=== PATIENT | male | born 1960 | race Caucasian/White ===

== ENCOUNTER 2017-12-22 14:20 | Inpatient (IN) | payer MEDICAID ==
[~2017-12-22] VITALS: Ht 167.6 cm; Wt 88.0 kg
[2017-12-22 14:25] VITALS: BP 129/84
[2017-12-22] MEDS ORDERED: BUPR150T14 PO (15:12)
[2017-12-22] MEDS ORDERED: CYCL10TA9 PO (15:12)
[2017-12-22] MEDS ORDERED: CITA20TA9 PO (15:12)
[2017-12-22] MEDS ORDERED: ATEN50TA PO (15:12)
[2017-12-22] MEDS ORDERED: LISI1TAB8 PO (15:12)
[2017-12-22] MEDS ORDERED: ATOR80TA76 PO (15:12)
[2017-12-22] MEDS ORDERED: FLUT1DIS28 IH (15:12)
[2017-12-22] MEDS ORDERED: MELO15TA39 PO (15:12)
[2017-12-22] MEDS ORDERED: ASPI-808 PO (15:12)
[2017-12-22] MEDS ORDERED: MULT-1029 PO (15:12)
[2017-12-22] MEDS ORDERED: UMEC62.5 IH (15:12)
[2017-12-22] MEDS ORDERED: albuterol INH (15:39)
[2017-12-22] MEDS ORDERED: LORA-405 PO (16:10)
[2017-12-22] MEDS ORDERED: CYCLOBENZAPRINE 10 MG (FLEXERIL) TAB PO PRN (16:15)
[2017-12-22] MEDS ORDERED: LORazepam 1 MG (ATIVAN) TAB PO PRN (16:15)
[2017-12-22 17:55] LABS: BASOPHILS % (AUTO) 0 % (0-10); EOSINOPHILS % (AUTO) 0 % (0-10); HEMATOCRIT 41 % (40-54); LYMPHOCYTES % (AUTO) 7 % (12-44); MEAN CORPUSCULAR HEMOGLOBIN 29 PG (25-34); MEAN CORPUSCULAR HGB CONC 32 G/DL (32-36); MEAN CORPUSCULAR VOLUME 89 FL (80-99); MEAN PLATELET VOLUME 10.6 FL (7.4-10.4); MONOCYTES # (AUTO) 1.1 X 10^3 (0.0-1.0); MONOCYTES % (AUTO) 8 % (0-12); NEUTROPHILS # (AUTO) 12.1 X 10^3 (1.8-7.8); NEUTROPHILS % (AUTO) 85 % (42-75); PLATELET COUNT 328 10^3/uL (130-400); RED BLOOD COUNT 4.56 10^6/uL (4.35-5.85); RED CELL DISTRIBUTION WIDTH 15.4 % (10.0-14.5); WHITE BLOOD COUNT 14.2 10^3/uL (4.3-11.0)
[2017-12-22 18:00] VITALS: BP 115/83
[2017-12-22 18:13] LABS: ALANINE AMINOTRANSFERASE 54 U/L (0-55); ALBUMIN 3.2 GM/DL (3.2-4.5); ALKALINE PHOSPHATASE 74 U/L (40-136); BILIRUBIN,TOTAL 0.6 MG/DL (0.1-1.0); BUN/CREATININE RATIO 27; CALCIUM 9.4 MG/DL (8.5-10.1); CARBON DIOXIDE 23 MMOL/L (21-32); CHLORIDE 103 MMOL/L (98-107); CREATININE SERUM 0.89 MG/DL (0.60-1.30); GFR ESTIMATED > 60; GLUCOSE 110 MG/DL (70-105); POTASSIUM 4.7 MMOL/L (3.6-5.0); SODIUM 138 MMOL/L (135-145); TOTAL PROTEIN 6.8 GM/DL (6.4-8.2)
--- NOTE | 2017-12-22 18:18 | Diagnostic Imaging Report ---
INDICATION: Newly diagnosed with lung mass. Shortness of breath. EXAMINATION: Chest, 12/22/2017. COMPARISON: No priors available for comparison. FINDINGS: The heart is within normal limits in size. The pulmonary vasculature is somewhat prominent, left greater than right. Diffuse increased markings throughout the left mid and lower lung could be diffuse infiltrate with similar findings in the right infrahilar region. A discrete lung mass is not seen but could be obscured by the diffuse airspace opacities. No significant effusions are seen. There is no pneumothorax but there are marked emphysematous changes, especially in the apices, right worse than left. IMPRESSION: 1. Findings of bilateral infiltrates, left worse than right, with a component of asymmetric pulmonary edema not excluded. Followup recommended to assure complete resolution. 2. Findings of COPD. Dictated by: Dictated on workstation # [id number]
[2017-12-22 18:22] LABS: BAND NEUTROPHILS 1 %; BASOPHILS % (MANUAL) 0 %; EOSINOPHILS % (MANUAL) 0 %; LYMPHOCYTES % (MANUAL) 5 %; METAMYELOCYTES % 1 %; MONOCYTES % (MANUAL) 8 %; NEUTROPHILS % (MANUAL) 83 %; PLATELET CLUMPS OCCASIONAL; REACTIVE LYMPHOCYTES 2 %
[2017-12-22 18:23] LABS: ROULEAUX SLIGHT
[2017-12-22] MEDS ORDERED: RT-ALBUTEROL/IPRATROPIUM 3 ML (DUONEB) VIAL ONE (18:35)
[2017-12-22 19:25] LABS: ABG PCO2 33 MMHG (35-45); ABG PH 7.49 (7.37-7.43); ABG PO2 67 MMHG (79-93)
[2017-12-22 19:26] LABS: ABG BASE EXCESS 1.9 MMOL/L (-2.5-2.5); ABG OXYGEN SATURATION 96 % (94-100); ABG TCO2 26.4 MMOL/L (21.0-31.0); ALLENS TEST YES-POS; INSPIRED O2 6L; PATIENT TEMP 96.5; VENTILATOR NO
[2017-12-22 19:30] VITALS: BP 130/102
[2017-12-22] MEDS ORDERED: RT-ADVAIR HFA 45/21 MCG PER PUFF IH SCH (20:00)
[2017-12-22] MEDS ORDERED: buPROPion SR 150 MG (WELLBUTRIN SR) TAB PO SCH (21:00)
[2017-12-22] MEDS ORDERED: ATORVASTATIN 80 MG (LIPITOR) TABLET PO SCH (21:00)
[2017-12-23] MEDS ORDERED: MULTIVIT W/MINERALS TAB (THERAGRAN M) PO SCH (07:00)
[2017-12-23] MEDS ORDERED: ASPIRIN 325 MG (5 GR) TABLET PO SCH (09:00)
[2017-12-23] MEDS ORDERED: ATENOLOL 50 MG (TENORMIN) TAB PO SCH (09:00)
[2017-12-23] MEDS ORDERED: UMECLIDINIUM BROMIDE (INCRUSE ELLIPTA) 7'S IH SCH (09:00)
[2017-12-23] MEDS ORDERED: HYDROCHLOROTHIAZIDE 12.5 MG (HCTZ) CAP PO SCH (09:00)
[2017-12-23] MEDS ORDERED: MELOXICAM 7.5 MG (MOBIC) TABLET PO SCH (09:00)
[2017-12-23] MEDS ORDERED: lisINopril 20 MG (PRINIVIL) TABLET PO SCH (09:00)
[2017-12-23] MEDS ORDERED: NALT50TA PO (09:19)
[2017-12-23] MEDS ORDERED: FLUT1DIS26 IH (09:19)
[2017-12-23] MEDS ORDERED: HYDR-757 PO (09:26)
[2017-12-23] MEDS ORDERED: NF-XOP-HFA IH (09:33)
--- NOTE | 2017-12-23 21:09 | PM&R Post Admission Assessment ---
Post Admission Physician Asses Date seen by provider: Dec 23, 2017 Time seen by provider: 20:45 Admisison Dx: (1) Lung cancer The preadmission screen doesnt agree with the post admission assessment that the patient is a good candidate for inpatient rehabilitation. at this time due to Tachycardia and associated resp failure.The patient is currently on the ICU under the care of [facility] and Hospitalist The patient may have a comprehensive program of inpatient rehabilitation at a later time once medically improved and able to tolerate with a goal of maximizing level of functional independence prior to discharge home with [facility]. The patient may have PT/OT ninety minutes per day, each discipline, five days a week at a later time for gait, strengthening, conditioning, balance, ADLs, any patient/family/caregiver training as necessary. Speech therapy to do cognitive assessment and treat as indicated. ICU nursing to assist with bowel, bladder, skin, wound care, medication administration, pain management. Application Architect to assist with discharge planning, community reentry. SCD's for DVT prophylaxis. He appears to be well motivated to participate in three hours of therapy a day once medically improved. He should hopefully be able to tolerate three hours of therapy a day from a medical standpoint at a later time. He should benefit from the three hours of therapy a day. He has a reasonable discharge plan, reasonable discharge rehabilitation goals and a supportive family. He has various comorbidities that need to be closely monitored with medications and treatments adjusted on a daily basis as needed. These include: Resp failure metabolic acidosis Barriers to discharge for this patient who had been independent prior to this are for him to be modified independent to supervision for ADLs and mobility skills prior to discharge home with [facility], so as to lessen the burden of the caregivers. Risks for this patient include: 1. Fall 2. Fracture 3. DVT 4. Pulmonary embolism 5. Wound infection 6. Skin breakdown 7. Contractures 8. Poorly controlled pain 9. Urinary retention 10. UTI 11. Respiratory infection 12. Aspiration 13. Resp failure 14. Sepsis Estimated Length of Stay: 1 day Prognosis: Rehab prognosis appears fair for goal of discharge home with [facility] modified independent to supervision for ADLs and mobility skills once medically improved. General: Alert, Oriented X3, Cooperative, No Acute Distress HEENT: Atraumatic, EOMI, Mucous Memb Moist/[place] Neck: Supple, No JVD Lungs: Other (decreased breath sounds) Heart: Regular Rate, Other (rapid) Abdomen: Normal Bowel Sounds, Soft, No Tenderness Extremities: No Edema Neuro: Other (generalized weakness) PERLITA LIU MD Dec 23, 2017 21:09
--- NOTE | 2018-01-02 01:54 | DISCHARGE SUMMARY ---
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 The patient was treated at [facility] with O2 and steroids and is to see Dr. Jain, radiation oncology, [facility] for ongoing radiation therapy. He was referred to inpatient rehabilitation unit due to decline in his functional independence. A physician from outside facility discussed case with Dr. Sharma indicating the patient was stable for transfer. He was utilizing O2 by nasal cannula 6 liters per minute and BiPAP p.r.n. He had been independent prior to this. PAST MEDICAL HISTORY: Tobaccoism, COPD as per above. MEDICAL COURSE: The patient became more tachypneic and tachycardic. Dr. Sharma discussed case with Dr. Batista, hospitalist on-call. She transferred the patient to the ICU for further management. It is my understanding the patient was discharged from this facility on 12/30/2017, did not return to rehabilitation unit. No therapies were able to be provided due to the gravity of his stay on rehab unit, which was less than 3 hours. His blood pressure was 115/83 on 12/22. He was afebrile. Pulse was 117, respirations 21, O2 sat was 91% on 5 liters of O2 by nasal cannula. White count was 14.2 on 12/22, H and H 13/, platelet count 328,000. Chemistry revealed lactic acid of 1.50, blood glucose 110, AST elevated at 40, BUN 24. Troponin is less than 0.3. BNP is less than 10. Blood gas showed pH 7.49, CO2 33, pO2 67. DISCHARGE INSTRUCTIONS: He had a followup with Dr. Batista and Dr. Garza in ICU. DISCHARGE MEDICATIONS: Supplemental O2 and BiPAP as per above, ASA 325 mg p.o. daily, atenolol 50 mg p.o. daily, Lipitor 80 mg p.o. at bedtime, bupropion 150 mg p.o. b.i.d., Celexa 20 mg p.o. daily, fluticasone/salmeterol 1 inhalation b.i.d., hydrocodone/APAP 1 tablet p.o. daily p.r.n. pain, lisinopril/hydrochlorothiazide 1 tablet p.o. daily, Mobic 15 mg p.o. daily, multivitamins with iron 1 tablet p.o. daily, naltrexone 50 mg p.o. daily. DISCHARGE DIAGNOSES: 1. Acute respiratory failure. 2. Left upper lobe lung cancer. 3. Tachycardia and tachypnea. 4. Metabolic acidosis. 5. Chronic obstructive pulmonary disease. 6. Pulmonary congestion. 7. Tobaccoism. CONDITION AT DISCHARGE: Unimproved, but stable for transfer to ICU. PROGNOSIS: Rehab prognosis appears somewhat guarded at this time. Job ID: [id number] DocumentID: [id number] Dictated Date: 01/01/2018 10:41:17 Airplane Engineer Date: 01/01/2018 23:39:20 Dictated By: PERLITA SHARMA MD
--- NOTE | 2018-01-07 08:46 | HISTORY AND PHYSICAL ---
ADMISSION HISTORY AND PHYSICAL CHIEF COMPLAINT: Shortness of breath. 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 The patient was treated at [facility] with oxygen and steroids and is to see Dr. Jain, radiation oncology at [facility] for ongoing radiation therapy. He was referred to inpatient rehabilitation unit due to decline in his functional independence. Currently, he requires assistance for his ADLs and mobility skills. He has tachypnea and tachycardia at rest. He is utilizing O2 by nasal cannula 6 liters per minute and BiPAP p.r.n. He had been independent prior to all this. PAST MEDICAL HISTORY: Tobaccoism, COPD. PAST SURGICAL HISTORY: Noncontributory. ALLERGIES: CODEINE. FAMILY HISTORY: Lung cancer in mother. Uterine cancer in sister. Brain cancer in mother. Congenital heart disease in father. SOCIAL HISTORY: Essentially as per above. REVIEW OF SYSTEMS: Significant for rapid heartbeat, dyspnea, weakness. MEDICATIONS: Supplemental O2, BiPAP, ASA 325 mg p.o. daily, atenolol 50 mg p.o. daily, Lipitor 80 mg p.o. at bedtime, bupropion 150 mg p.o. b.i.d., Celexa 20 mg p.o. daily, fluticasone/salmeterol 1 inhalation b.i.d., hydrocodone APAP 1 tablet p.o. daily p.r.n. pain, lisinopril/hydrochlorothiazide one tablet p.o. daily, Mobic 15 mg p.o. daily, multivitamins with iron 1 tablet p.o. daily, naltrexone 50 mg p.o. daily. PHYSICAL EXAMINATION: GENERAL: Significant for a male appearing his stated age, lying in bed, complaining of mild shortness of breath. VITAL SIGNS: He is afebrile, pulse is 127, blood pressure 129/84, respirations 24, and O2 sat 93% on 6 liters of O2 by nasal cannula. HEENT: The patient reports some decreased vision in the left eye. Otherwise, vision, speech, hearing are grossly intact. No oral lesion is noted. NECK: Supple without mass. HEART: Rapid rhythm. CHEST: Decreased breath sounds. ABDOMEN: Soft, nontender, bowel sounds present. EXTREMITIES: No lower leg edema, no calf tenderness. MUSCULOSKELETAL: The patient has generalized weakness. NEUROLOGIC: Sensation is grossly intact to touch. Cognition appears intact. LABORATORY DATA: White count 20, H and H 12.1/37, blood glucose 108. IMPRESSION: 1. General debilitation secondary to acute respiratory failure secondary to underlying lung cancer. 2. Pulmonary congestion on chest x-ray, rule out pneumonia. The patient placed on antibiotic as per sepsis protocol. 3. Tobaccoism, currently abstaining. 4. Metabolic acidosis, provided with IV fluids. PLAN: Discussed the case with Dr. Batista. She has transferred patient to the ICU. Discussed case with hospitalist at [facility] who indicated the patient was fairly stable for transfer on Saturday the first. Dehydration, IV fluids provided. Panculture as per sepsis protocol. We will discuss further with the staff that the patient may not be able to tolerate rehab once stabilized by medical team. We will follow up with them. ESTIMATED LENGTH OF STAY: The patient was on unit for less than 12 hours. CODE STATUS: Full code. DIET: As tolerated. Job ID: [id number] DocumentID: [id number] Dictated Date: 12/23/2017 21:02:49 Irrigation Supervisor Date: 12/23/2017 22:43:09 Dictated By: PERLITA LIU MD <Dictated by PERLITA LIU MD> <Electronically signed by PERLITA LIU MD> 12/24/17 [id number]
== END 2017-12-25 07:00 | disposition short-term general hospital (02) | DRG 189 ==
PROVIDERS: ADMIT Physical Medicine & Rehabilitation; ATTEND Physical Medicine & Rehabilitation
DX: J96.00 Acute respiratory failure, unspecified whether with hypoxia or hypercapnia (principal); C34.12 Malignant neoplasm of upper lobe, left bronchus or lung; E87.2 Acidosis; R00.0 Tachycardia, unspecified; J44.9 Chronic obstructive pulmonary disease, unspecified; R09.89 Other specified symptoms and signs involving the circulatory and respiratory systems; F17.210 Nicotine dependence, cigarettes, uncomplicated
CPT/HCPCS: 36415; 36600; 71045; 80053; 82805; 83605; 83880; 84484; 85007; 85027; 93005; 94640; 94660; 94760

== ENCOUNTER 2017-12-22 19:08 | Inpatient (IN) | payer MEDICAID ==
[~2017-12-22] VITALS: Ht 167.6 cm; Wt 92.6 kg
[2017-12-22] VITALS (10 sets, daily range): BP systolic 91–130; BP diastolic 69–102
[~2017-12-22 19:08] MED LIST: ASPI-808 PO; ATEN50TA PO; ATOR80TA76 PO; BUPR150T14 PO; CITA20TA9 PO; CYCL10TA9 PO; FLUT1DIS28 IH; LISI1TAB8 PO; LORA-405 PO; MELO15TA39 PO; MULT-1029 PO; UMEC62.5 IH; albuterol INH
[2017-12-22] MEDS ORDERED: PIPERACILLIN/TAZOBACTAM 3.375 GM in NS (IVPB) 100 ML IV ONE (19:17)
[2017-12-22] MEDS ORDERED: PHARMACY TO DOSE IV SCH (19:30)
[2017-12-22] MEDS ORDERED: LORazepam INJ 2 MG/ML (ATIVAN) VIAL IVP PRN (19:30)
[2017-12-22] MEDS ORDERED: IBUPROFEN TABLET 200 MG TAB PO PRN (19:30)
[2017-12-22] MEDS ORDERED: ACETAMINOPHEN 500 MG TAB (TYLENOL) PO PRN (19:30)
[2017-12-22] MEDS ORDERED: fentaNYL INJECTION 100 MCG/2 ML AMP IVP PRN (19:30)
[2017-12-22] MEDS ORDERED: HYDROcodone/APAP 5 MG/325 MG (LORTAB) TAB PO PRN (19:30)
[2017-12-22] MEDS ORDERED: ONDANSETRON 4 MG/2 ML (SDV) Z0FRAN IVP PRN (19:30)
[2017-12-22] MEDS ORDERED: POLYETHYLENE GLYCOL 17 GM (MIRALAX) PACK PO PRN (19:30)
[2017-12-22] MEDS ORDERED: VANCOMYCIN 1,750 MG/NS 500 ML IVPB IV ONE ×2 (20:15)
[2017-12-22] MEDS: ENOXAPARIN 40 MG/0.4 ML (LOVENOX) SYR SC SCH (21:09)
[2017-12-22] MEDS: DOCUSATE SODIUM 100 MG (COLACE) CAP PO SCH (21:09)
[2017-12-22] MEDS ORDERED: VANCOMYCIN 750 MG/VIAL IV ONE (21:20)
[2017-12-22] MEDS ORDERED: NS IV 500 ML 500 ML ONE (21:20)
[2017-12-22] MEDS ORDERED: VANCOMYCIN 1000 MG/VIAL ONE (21:20)
[2017-12-22] MEDS ORDERED: RT-ALBUTEROL/IPRATROPIUM 3 ML (DUONEB) VIAL INH PRN (22:45)
[2017-12-22] MEDS: methylPREDNISolone 40 MG/ML (Solu-MEDROL) VIAL IV SCH (23:25)
[2017-12-23] VITALS (29 sets, daily range): BP systolic 101–162; BP diastolic 70–108
[2017-12-23] MEDS: PIPERACILLIN/TAZO 3.375 GM/D5W 100 ML IV SCH ×6 (01:36→18:15)
[2017-12-23] MEDS: RT-ALBUTEROL/IPRATROPIUM 3 ML (DUONEB) VIAL INH SCH ×6 (01:52→22:08)
[2017-12-23 04:25] LABS: BASOPHILS % (AUTO) 0 % (0-10); EOSINOPHILS # (AUTO) 0.1 10^3/uL (0.0-0.3); EOSINOPHILS % (AUTO) 0 % (0-10); HEMATOCRIT 37 % (40-54); HEMOGLOBIN 12.1 G/DL (13.3-17.7); LYMPHOCYTES # (AUTO) 1.6 X 10^3 (1.0-4.0); LYMPHOCYTES % (AUTO) 8 % (12-44); MEAN CORPUSCULAR HEMOGLOBIN 30 PG (25-34); MEAN CORPUSCULAR HGB CONC 33 G/DL (32-36); MEAN CORPUSCULAR VOLUME 90 FL (80-99); MONOCYTES # (AUTO) 1.5 X 10^3 (0.0-1.0); MONOCYTES % (AUTO) 8 % (0-12); NEUTROPHILS # (AUTO) 16.8 X 10^3 (1.8-7.8); NEUTROPHILS % (AUTO) 84 % (42-75); PLATELET COUNT 252 10^3/uL (130-400); RED CELL DISTRIBUTION WIDTH 15.3 % (10.0-14.5)
[2017-12-23 04:41] LABS: MAGNESIUM 2.1 MG/DL (1.8-2.4)
[2017-12-23 04:43] LABS: ALANINE AMINOTRANSFERASE 47 U/L (0-55); ALBUMIN 2.7 GM/DL (3.2-4.5); ALKALINE PHOSPHATASE 65 U/L (40-136); BILIRUBIN,TOTAL 0.5 MG/DL (0.1-1.0); BUN/CREATININE RATIO 26; CALCIUM 8.9 MG/DL (8.5-10.1); CARBON DIOXIDE 19 MMOL/L (21-32); CHLORIDE 107 MMOL/L (98-107); CREATININE SERUM 0.93 MG/DL (0.60-1.30); GFR ESTIMATED > 60; GLUCOSE 108 MG/DL (70-105); POTASSIUM 4.4 MMOL/L (3.6-5.0); SODIUM 139 MMOL/L (135-145); TOTAL PROTEIN 5.8 GM/DL (6.4-8.2)
[2017-12-23] MEDS: POTASSIUM CL 10MEQ/50ML IVPB 50 ML IV SCH (05:07)
[2017-12-23] MEDS: KCL 20 MEQ TAB (K-DUR) PO SCH (05:07)
[2017-12-23] MEDS: MAGNESIUM 1 GM/100 ML IVPB 100 ML IV SCH (05:07)
[2017-12-23] MEDS: methylPREDNISolone 40 MG/ML (Solu-MEDROL) VIAL IV SCH ×3 (05:46→17:11)
[2017-12-23] MEDS ORDERED: NS IV 1000 ML 2,653.53 ML IV PRN (08:15)
--- NOTE | 2017-12-23 08:16 | Pulmonary Consultation ---
History of Present Illness History of Present Illness Date of Consultation 12/23/17 08:11 Time Seen by Provider: 08:11 Date of Admission History of Present Illness 57yo who was recently at [facility] transferred to our in patient rehab facility. While on rehab floor patient developed progressive respiratory distress and had to be transferred to ICU. Pt is currently on BiPAP and it is difficult to obtain any information from patient. No family at bedside. CXR shows pulmonary congestion. IVF are hep locked Allergies and Home Medications Allergies Coded Allergies: codeine (Verified Allergy, Unknown, 12/22/17) Home Medications Apixaban 5 Mg Tablet, 5 MG PO BID TAKE 2 TABLETS BID X 7 DAYS, THEN 1 TABLET BID Prescribed by: RELL BONILLA on 12/30/17755 Bupropion HCl 150 Mg Tablet.er, 150 MG PO BID Prescribed by: REYMUNDO SANTANA on 12/22/171511 Citalopram Hydrobromide 20 Mg Tablet, 20 MG PO DAILY Prescribed by: REYMUNDO SANTANA on 12/22/17 151 Fluticasone/Salmeterol 1 Each Blst.w.dev, 1 EACH IH BID, (Reported) Hydrocodone/Acetaminophen 1 Each Tablet, 1 EACH PO DAILY PRN for PAIN-MILD TO MODERATE, (Reported) Levalbuterol Tartrate 15 Gm Hfa.aer.ad, 15 GM IH DAILY, (Reported) Meloxicam 15 Mg Tablet, 15 MG PO DAILY Prescribed by: REYMUNDO SANTANA on 12/22/171511 Morphine Sulfate 100 Mg/5 Ml Solution, 5 MG PO Q2H PRN for PAIN Prescribed by: RELL BONILLA on 12/30/17755 Multivit-Min/FA/Lycopene/Lut 1 Each Tablet, 1 EACH PO DAILY Prescribed by: REYMUNDO SANTANA on 12/22/171511 Umeclidinium [place] 62.5 Mcg Blst.w.dev, 62.5 MCG IH DAILY Prescribed by: REYMUNDO SANTANA on 12/22/171511 Past Fslyfos-Iobjny-Xzrgiw Hx Patient Social History Alcohol Use: Occasionally Uses Alcohol Beverage of Choice: Beer Recreational Drug Use: No Smoking Status: Former Smoker Former Smoker, Quit: Mar 25, 2017 Recent Foreign Travel: No Contact w/Someone Who Travel: No Recent Infectious Disease Expo: No Recent Hopitalizations: Yes Seasonal Allergies Seasonal Allergies: No Past Medical History Surgeries: Yes Respiratory: Yes Pneumonia, COPD Currently Using CPAP: No Currently Using BIPAP: No Neurological: Yes (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) Gastrointestinal: Yes Abdominal Hernia, Gastroesophageal Reflux, Gall Bladder Disease Musculoskeletal: Yes Arthritis Endocrine: No HEENT: Yes (poor vision in the left eye for 10 yrs possible CVA of the eye) Loss of Vision: Left Hearing Impairment: Denies Cancer: Yes Lung, Kidney Did You Recieve Any Treatments: Yes What Type of Treatment Did You: Radiation Started Radiation on 12/19/17 Psychosocial: Yes Anxiety, Depression Integumentary: No Blood Disorders: No Adverse Reaction/Blood Tranf: No Family Medical History Congenital heart disease 19 FATHER FH: brain cancer 19 MOTHER FH: lung cancer 19 MOTHER FH: uterine cancer G8 SISTER Review of Systems Time Seen by Provider: 13:34 Constitutional: Weakness Respiratory: Cough, Dry, Shortness of breath, SOB with excertion Gastrointestinal: No: Nausea, Vomiting, Abdominal Pain, Diarrhea, Constipation , Melena, Hematochezia, Other Neurological: Weakness Exam Exam Vital Signs Date Time Temp Pulse Resp B/P (MAP) Pulse Ox O2 Delivery O2 Flow Rate FiO2 12/23/17 08:07 101 16 120/96 (104) 98 Vapotherm 35.00 40.00 12/23/17 06:52 86 16 100 35.00 12/23/17 06:00 82 13 108/74 (85) 100 NIV Bilevel 35.00 12/23/17 05:00 84 15 112/74 (87) 100 NIV Bilevel 35.00 12/23/17 04:00 90 14 120/80 (93) 100 NIV Bilevel 35.00 12/23/17 04:00 100 NIV Bilevel 40 12/23/17 03:59 90 15 99 40.00 12/23/17 03:58 60 17 100 NIV Bilevel 35.00 12/23/17 03:00 89 15 115/78 (90) 100 NIV Bilevel 40.00 12/23/17 02:00 90 15 119/80 (93) 100 NIV Bilevel 40.00 12/23/17 01:52 90 16 100 40.00 12/23/17 01:00 93 12/23/17 01:00 93 15 114/71 (85) 100 NIV Bilevel 40.00 12/23/17 00:00 98 NIV Bilevel 40 12/23/17 00:00 97 15 101/74 (83) 100 NIV Bilevel 40.00 12/22/17 23:41 101 25 100 50.00 12/22/17 23:41 99 15 100 NIV Bilevel 40.00 12/22/17 23:00 108 16 121/81 (94) 100 NIV Bilevel 50.00 12/22/17 22:00 112 14 100/69 (79) 100 NIV Bilevel 50.00 12/22/17 21:46 122 24 95 50.00 12/22/17 21:46 122 95 50 12/22/17 21:37 117 20 120/80 (93) 100 NIV Bilevel 50.00 12/22/17 21:30 118 21 124/81 (95) 100 Vapotherm 75.00 25.00 12/22/17 21:16 97 Vapotherm 40.00 75 12/22/17 21:15 117 16 120/80 (93) 100 NIV Bilevel 50.00 12/22/17 21:00 100 NIV Bilevel 50.00 12/22/17 20:37 124 12/22/17 20:00 97.0 12/22/17 20:00 123 22 124/81 (95) 100 NIV Bilevel 50.00 12/22/17 19:45 121 25 91/79 (83) 100 NIV Bilevel 50.00 12/22/17 19:30 118 22 93/74 (80) 100 NIV Bilevel 50.00 12/22/17 19:22 124 12 130/102 (111) 90 NIV Bilevel 50.00 I & O 12/23/17 07:00 Intake Total 1040 ml Output Total 600 ml Balance 440 ml General Appearance: Moderate Distress Neck: Normal Inspection, Non Tender, Supple Respiratory: Decreased Breath Sounds, Respiratory Distress Cardiovascular: No Edema, No Gallop, Tachycardia Capillary Refill: Less Than 3 Seconds Peripheral Pulses: 2+ Carotid (R), 2+ Carotid (L), 2+ Radial Pulses (R), 2+ Radial Pulses (L) Gastrointestinal: normal bowel sounds, non tender, soft Extremity: Normal Capillary Refill Neurologic/Psychiatric: Alert, Oriented x3 Skin: Normal Color, Warm/Dry Lymphatic: No Adenopathy Results Lab Laboratory Tests 12/23/17 03:15 Assessment/Plan Assessment/Plan Acute respiratoy failure -BIPAP PRN -Will trial patient off BiPAP this AM Pneumonia with severe sepsis -Lactic acid is normal. will repeat -will start severe sepsis protocol 30cc/kg of IVF -Start IVF -garza culture -continue Vanco and zosyn Dehydration -IVF Anemia -monitor Metabolic acidosis -IVF -repeat LA Debility/deconditioning 255 MARLO FORRESTER DO Dec 23, 2017 08:16
[2017-12-23] MEDS: DOCUSATE SODIUM 100 MG (COLACE) CAP PO SCH ×2 (08:28→20:06)
[2017-12-23] MEDS: VANCOMYCIN 1500 MG/NS 500 ML IVPB IV SCH ×4 (08:42→20:06)
[2017-12-23] MEDS: NS IV 1000 ML 1,000 ML IV SCH ×4 (08:42→20:48)
--- NOTE | 2017-12-23 08:43 | Diagnostic Imaging Report ---
INDICATION: Respiratory distress. Portable chest 3:39 AM There are emphysematous changes in the lungs. There is a large consolidating infiltrate in the perihilar region of left lung that is improved slightly from the previous day. IMPRESSION: Left perihilar pneumonia has shown some improvement since the previous days exam. Dictated by: Dictated on workstation # [id number]
[2017-12-23] MEDS ORDERED: NALT50TA PO (09:19)
[2017-12-23] MEDS ORDERED: FLUT1DIS26 IH (09:19)
--- NOTE | 2017-12-23 09:20 | History & Physical-Hospitalist ---
History of Present Illness HPI/Chief Complaint CC: Respiratory distress HPI: This is a 57-year-old white male who was just discharged from hospital in [facility] and was set to be admitted to inpatient rehabilitation of which he was upon arrival nursing staff contacted me regarding respiratory distress. Apparently he is just had a recent diagnosis of lung cancer of which Dr. Tirado has been involved and will be undergoing radiation treatment of which he's had two treatments already. He was diagnosed with 2 bouts of pneumonia in the past one month requiring rehospitalization and had just completed Levaquin 10 days prior to transferring to [facility]. 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 He is a previous smoker. He reports that his had leukemia 7 years ago and 2-1/2 years ago and he has been in penitentiary since that time. Unclear the type of lung cancer he has been Dr. Jain will be consulted for radiation treatment here [facility]. He was not discharged home on oxygen and was not discharged on BiPAP since he was being placed in a hospital facility in inpatient rehabilitation when he was transferred to [facility]. Source: patient, RN/MD Exam Limitations: no limitations Date Seen 12/23/17 Time Seen by Provider: 09:00 Attending Physician Mireille Frias DO PCP Unknown Referring Physician Date of Admission Dec 22, 2017 at 19:08 Home Medications & Allergies Home Medications Reviewed patient Home Medication Reconciliation performed by pharmacy medication reconciliations holter technician and/or nursing. Patients Allergies have been reviewed. 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) Alcohol Use: Occasionally Uses Alcohol Beverage of Choice: Beer Recreational Drug Use: No Smoking Status: Former Smoker Former Smoker, Quit: Mar 25, 2017 Physical Abuse Screen: No Sexual Abuse: No Recent Foreign Travel: No Contact w/other who traveled: No Recent Hopitalizations: Yes Recent Infectious Disease Expo: No Seasonal Allergies Seasonal Allergies: No Past Medical History Currently Using CPAP: No Currently Using BIPAP: No Cardiac: High Cholesterol, Hypertension Gastrointestinal: Abdominal Hernia, Gastroesophageal Reflux, Gall Bladder Disease Musculoskeletal: Arthritis Loss of Vision: Left Hearing Impairment: Denies Cancer: Lung, Kidney Did You Recieve Any Treatments: Yes What Type of Treatment Did You: Radiation Cancer: Started Radiation on Thurdsay 12/19/17 Psychosocial: Anxiety, Depression History of Blood Disorders: No Adverse Reaction to Blood Link: No Family History Congenital heart disease 19 FATHER FH: brain cancer 19 MOTHER FH: lung cancer 19 MOTHER FH: uterine cancer G8 SISTER Hypertension Review of Systems Constitutional: no symptoms reported, fever, malaise, weakness EENTM: no symptoms reported Respiratory: cough, dyspnea on exertion, orthopnea, short of breath, wheezing Cardiovascular: no symptoms reported Gastrointestinal: no symptoms reported Genitourinary: no symptoms reported Musculoskeletal: no symptoms reported Skin: no symptoms reported Psychiatric/Neurological: No Symptoms Reported All Other Systems Reviewed Negative Unless Noted: Yes Physical Exam Physical Exam Vital Signs Vital Signs - First Documented 12/22/17 12/22/17 12/22/17 19:22 20:00 21:16 Temp 97.0 Pulse 124 Resp 12 B/P (MAP) 130/102 (111) Pulse Ox 90 O2 Delivery NIV Bilevel O2 Flow Rate 50.00 FiO2 75 Capillary Refill : Less Than 3 Seconds General Appearance: WD/WN, Chronically ill, Mild Distress (due to tachypnea) Eyes: Bilateral Eye Normal Inspection, Bilateral Eye PERRL HEENT: PERRL/EOMI, Normal ENT Inspection, Pharynx Normal Neck: Full Range of Motion, Normal Inspection, Non Tender, Supple, Carotid Bruit Respiratory: Chest Non Tender, Crackles, Decreased Breath Sounds, Wheezing Cardiovascular: No Edema, No Gallop, No JVD, No Murmur, Normal Peripheral Pulses, Tachycardia Gastrointestinal: Normal Bowel Sounds, No Organomegaly, No Pulsatile Mass, Non Tender, Soft Back: Normal Inspection, No CVA Tenderness, No Vertebral Tenderness Extremity: Normal Capillary Refill, Normal Inspection, Normal Range of Motion, Non Tender, No Calf Tenderness, No Pedal Edema Neurologic/Psychiatric: Alert, Oriented x3, No Motor/Sensory Deficits, Normal Mood/Affect Skin: Normal Color, Warm/Dry Lymphatic: No Adenopathy Results Results/Procedures Labs Laboratory Tests 12/23/17 03:15 Patient resulted labs reviewed. Assessment/Plan Admission Diagnosis Pneumonia Lung cancer COPD Sepsis Admission Status: Inpatient Order (span 2 midnights) Reason for Inpatient Admission: Resistant penumonia with lung cancer will require IV abx and biPAP Assessment and Plan Plan: Appreciate Dr. Garza consultation IV fluid for elevated lactic acid with sepsis Empiric antibiotics of Zosyn and vancomycin Dr. Jain for radiation treatment of lung cancer Monitor labs closely BiPAP Diagnosis/Problems Diagnosis/Problems (1) Acute respiratory failure with hypoxia Status: Acute Assessment & Plan: BiPAP use with oxygen and nebulizer treatments (2) Sepsis Status: Acute Assessment & Plan: IV fluid per protocol Qualifiers: Sepsis type: sepsis due to unspecified organism Qualified Codes: A41.9 - Sepsis, unspecified organism (3) Pneumonia Status: Acute Assessment & Plan: Maintain vancomycin and Zosyn empiric antibiotics coverage Qualifiers: Pneumonia type: due to unspecified organism Laterality: left Lung location: lower lobe of lung Qualified Codes: J18.1 - Lobar pneumonia, unspecified organism (4) Lung cancer Status: Chronic Assessment & Plan: Obtain records from [facility] regarding specifics on lung cancer Qualifiers: Laterality: left Lung location: unspecified part of lung Qualified Codes : C34.92 - Malignant neoplasm of unspecified part of left bronchus or lung (5) COPD (chronic obstructive pulmonary disease) Status: Acute Qualifiers: COPD type: unspecified COPD Qualified Codes: J44.9 - Chronic obstructive pulmonary disease, unspecified (6) Former smoker Status: Chronic Clinical Quality Measures DVT/VTE Risk/Contraindication: Risk Factor Score Per Nursin RFS Level Per Nursing on Admit: 4+=Very High MIREILLE FRIAS DO Dec 23, 2017 09:20
[2017-12-23] MEDS ORDERED: HYDR-757 PO (09:26)
[2017-12-23] MEDS ORDERED: NF-XOP-HFA IH (09:33)
[2017-12-23 09:35] LABS: ABG BASE EXCESS 0.8 MMOL/L (-2.5-2.5); ABG OXYGEN SATURATION 91 % (94-100); ABG PCO2 36 MMHG (35-45); ABG PH 7.45 (7.37-7.43); ABG PO2 55 MMHG (79-93); ABG TCO2 25.8 MMOL/L (21.0-31.0); ALLENS TEST P
[2017-12-23 09:36] LABS: INSPIRED O2 Y; PATIENT TEMP 96.4; VENTILATOR NO
--- NOTE | 2017-12-23 11:31 | Progress Note (SOAP) ---
Subjective Date Seen by Provider: Dec 23, 2017 Time Seen by Provider: 10:00 Subjective/Events-last exam Note only - patient was not seen by rad onc provider Focused Exam Lactate Level 12/23/17 07:35: Lactic Acid Level 2.46*H 12/23/17 09:45: Lactic Acid Level 2.51*H Lactic Acid Level Laboratory Tests Test 12/23/17 07:35 12/23/17 09:45 Lactic Acid Level 2.46 MMOL/L (0.50-2.00) *H 2.51 MMOL/L (0.50-2.00) *H Objective Exam Last Set of Vital Signs Vital Signs Date Time Temp Pulse Resp B/P (MAP) Pulse Ox O2 Delivery O2 Flow Rate FiO2 12/23/17 10:53 96 Vapotherm 35.00 12/23/17 09:00 107 17 120/76 (91) 12/23/17 08:15 35 12/23/17 08:07 96.0 Capillary Refill : Less Than 3 Seconds I&O Intake and Output 12/23/17 00:00 Intake Total 340 ml Output Total 400 ml Balance -60 ml Intake Oral 240 ml IV Total 100 ml Output Urine Total 400 ml Daily Weight Change No Results Lab Laboratory Tests 12/23/17 03:15: White Blood Count 20.0H, Red Blood Count 4.10L, Hemoglobin 12.1L, Hematocrit 37L , Mean Corpuscular Volume 90, Mean Corpuscular Hemoglobin 30, Mean Corpuscular Hemoglobin Concent 33, Red Cell Distribution Width 15.3H, Platelet Count 252, Mean Platelet Volume 11.0H, Neutrophils (%) (Auto) 84H, Lymphocytes (%) (Auto) 8L, Monocytes (%) (Auto) 8, Eosinophils (%) (Auto) 0, Basophils (%) (Auto) 0, Neutrophils # (Auto) 16.8H, Lymphocytes # (Auto) 1.6, Monocytes # (Auto) 1.5H, Eosinophils # (Auto) 0.1, Basophils # (Auto) 0.0, Sodium Level 139, Potassium Level 4.4, Chloride Level 107, Carbon Dioxide Level 19L, Anion Gap 13, Blood Urea Nitrogen 24H, Creatinine 0.93, Estimat Glomerular Filtration Rate > 60, BUN /Creatinine Ratio 26, Glucose Level 108H, Calcium Level 8.9, Phosphorus Level 3.0, Magnesium Level 2.1, Total Bilirubin 0.5, Aspartate Amino Transf (AST/SGOT ) 40H, Alanine Aminotransferase (ALT/SGPT) 47, Alkaline Phosphatase 65, Total Protein 5.8L, Albumin 2.7L 12/23/17 07:35: Lactic Acid Level 2.46*H 12/23/17 07:50: B-Type Natriuretic Peptide 18.3 12/23/17 09:27: Blood Gas Puncture Site R BRACHIAL, Blood Gas Patient Temperature 96.4, Arterial Blood pH 7.45H, Arterial Blood Partial Pressure CO2 36, Arterial Blood Partial Pressure O2 55L, Arterial Blood HCO3 25, Arterial Blood Total CO2 25.8, Arterial Blood Oxygen Saturation 91L, Arterial Blood Base Excess 0.8, Per Test P, Blood Gas Ventilator Setting NO, Blood Gas Inspired Oxygen Y 12/23/17 09:45: Lactic Acid Level 2.51*H Assessment/Plan Assessment/Plan Assess & Plan/Chief Complaint 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 Jain this a.m. with regards rad onc consult. I followed up with Shae GALDAMEZ. Patient now on vapotherm pressurized nasal cannula; she reports he is short of breath at rest in a sitting position; when questioned about lying him flat for a ct sim/treatment she states he would not be able to tolerate it at this time. Dr. Jain does not want to bring patient down to rad onc dept until able to lie flat for 10-15 minutes for repeat sim followed by same day treatment. Shae GALDAMEZ notified of Dr. Jain' decision. Final Diagnosis Stage IV NSC lung cancer, ALKA respiratory compromise due to external compression of left mainstem bronchus Clinical Quality Measures DVT/VTE Risk/Contraindication: Risk Factor Score Per Nursin RFS Level Per Nursing on Admit: 4+=Very High JAZZMINE ALCOCER RN, PRECIPITATOR SUPERVISOR Dec 23, 2017 11:31
[2017-12-23] MEDS ORDERED: morphine INJ 4 MG/ML 1 ML (VIAL/SYRINGE) ONE (14:31)
[2017-12-23] MEDS ORDERED: HALOPERIDOL 5 MG/ML (HALDOL) AMP IM PRN (14:45)
[2017-12-23] MEDS ORDERED: morphine INJ 4 MG/ML 1 ML (VIAL/SYRINGE) IVP PRN (14:45)
[2017-12-23] MEDS: ENOXAPARIN 40 MG/0.4 ML (LOVENOX) SYR SC SCH (20:06)
[2017-12-23] MEDS: morphine INJ 4 MG/ML 1 ML (VIAL/SYRINGE) IVP PRN (22:05)
[2017-12-24] VITALS (37 sets, daily range): BP systolic 98–182; BP diastolic 54–109
[2017-12-24] MEDS: methylPREDNISolone 40 MG/ML (Solu-MEDROL) VIAL IV SCH ×4 (00:05→17:43)
[2017-12-24] MEDS: PIPERACILLIN/TAZO 3.375 GM/D5W 100 ML IV SCH ×6 (02:05→17:43)
[2017-12-24] MEDS: RT-ALBUTEROL/IPRATROPIUM 3 ML (DUONEB) VIAL INH SCH ×6 (02:28→21:14)
[2017-12-24 03:30] LABS: BASOPHILS % (AUTO) 0 % (0-10); EOSINOPHILS % (AUTO) 0 % (0-10); HEMATOCRIT 37 % (40-54); HEMOGLOBIN 11.8 G/DL (13.3-17.7); LYMPHOCYTES # (AUTO) 1.5 X 10^3 (1.0-4.0); LYMPHOCYTES % (AUTO) 6 % (12-44); MEAN CORPUSCULAR HEMOGLOBIN 29 PG (25-34); MEAN CORPUSCULAR HGB CONC 32 G/DL (32-36); MEAN CORPUSCULAR VOLUME 92 FL (80-99); MEAN PLATELET VOLUME 10.4 FL (7.4-10.4); MONOCYTES # (AUTO) 1.5 X 10^3 (0.0-1.0); MONOCYTES % (AUTO) 6 % (0-12); NEUTROPHILS # (AUTO) 21.2 X 10^3 (1.8-7.8); NEUTROPHILS % (AUTO) 88 % (42-75); PLATELET COUNT 265 10^3/uL (130-400); RED BLOOD COUNT 4.04 10^6/uL (4.35-5.85); RED CELL DISTRIBUTION WIDTH 15.6 % (10.0-14.5); WHITE BLOOD COUNT 24.2 10^3/uL (4.3-11.0)
[2017-12-24] MEDS: NS IV 1000 ML 1,000 ML IV SCH (03:36)
[2017-12-24 03:50] LABS: BUN/CREATININE RATIO 20; CALCIUM 8.5 MG/DL (8.5-10.1); CARBON DIOXIDE 24 MMOL/L (21-32); CHLORIDE 110 MMOL/L (98-107); CREATININE SERUM 0.83 MG/DL (0.60-1.30); GFR ESTIMATED > 60; GLUCOSE 141 MG/DL (70-105); MAGNESIUM 2.3 MG/DL (1.8-2.4); PHOSPHORUS 2.6 MG/DL (2.3-4.7); POTASSIUM 4.4 MMOL/L (3.6-5.0); SODIUM 142 MMOL/L (135-145)
[2017-12-24] MEDS: MAGNESIUM 1 GM/100 ML IVPB 100 ML IV SCH (06:08)
[2017-12-24] MEDS: KCL 20 MEQ TAB (K-DUR) PO SCH (06:08)
[2017-12-24] MEDS: POTASSIUM CL 10MEQ/50ML IVPB 50 ML IV SCH (06:09)
--- NOTE | 2017-12-24 06:58 | Pulmonary Progress Note ---
Subjective Time Seen by Provider: 14:24 Subjective/Events-last exam NO complications noted. Focused Exam Lactate Level 12/23/17 09:45: Lactic Acid Level 2.51*H 12/23/17 12:27: Lactic Acid Level 2.44*H 12/23/17 17:03: Lactic Acid Level 1.56 Exam Exam Vital Signs Date Time Temp Pulse Resp B/P (MAP) Pulse Ox O2 Delivery O2 Flow Rate FiO2 12/24/17 06:00 89 13 137/95 (109) 99 NIV Bilevel 30.00 12/24/17 05:00 82 11 115/90 (98) 100 NIV Bilevel 30.00 12/24/17 04:20 92 18 99 30.00 12/24/17 04:00 98 12 129/89 (102) 99 NIV Bilevel 30.00 12/24/17 04:00 93 NIV Bilevel 35 12/24/17 03:00 99 17 145/96 (112) 97 NIV Bilevel 30.00 12/24/17 02:28 93 17 99 30.00 12/24/17 02:00 89 11 121/79 (93) 100 NIV Bilevel 30.00 12/24/17 01:00 88 12/24/17 01:00 88 10 119/81 (94) 99 NIV Bilevel 30.00 12/24/17 00:30 90 18 98 30.00 12/24/17 00:00 88 10 122/80 (94) 100 NIV Bilevel 30.00 12/24/17 00:00 93 Vapotherm 35.00 35 12/23/17 23:00 100 13 139/96 (110) 98 NIV Bilevel 30.00 12/23/17 22:08 112 26 95 30.00 12/23/17 22:00 112 9 133/73 (93) 98 NIV Bilevel 30.00 12/23/17 21:00 113 21 149/96 (113) 93 Vapotherm 35.00 35.00 12/23/17 20:00 113 14 137/85 (102) 95 Vapotherm 35.00 35.00 12/23/17 20:00 97.2 12/23/17 20:00 93 Vapotherm 35.00 35 12/23/17 19:00 92 14 134/98 (110) 100 NIV Bilevel 30.00 12/23/17 19:00 92 7/2/18 18:58 89 14 100 30.00 12/23/17 18:00 96 14 119/87 (98) 99 NIV Bilevel 30.00 12/23/17 17:00 100 14 126/94 (105) 99 NIV Bilevel 30.00 12/23/17 16:00 104 15 106/88 (94) 97 NIV Bilevel 30.00 12/23/17 15:34 98 NIV Bilevel 30 12/23/17 15:33 96.5 12/23/17 15:00 110 21 106/84 (91) 97 NIV Bilevel 30.00 12/23/17 14:25 NIV Bilevel 30.00 12/23/17 14:14 94 Vapotherm 35.00 12/23/17 14:00 111 33 131/99 (110) 95 Vapotherm 35.00 35.00 12/23/17 13:00 107 12/23/17 13:00 107 21 97 Vapotherm 35.00 35.00 12/23/17 12:00 105 29 162/102 (122) 97 Vapotherm 35.00 35.00 12/23/17 11:15 98.8 12/23/17 11:14 96 Vapotherm 35.00 35 12/23/17 11:00 115 27 154/108 (123) 100 NIV Bilevel 35.00 40.00 12/23/17 10:53 96 Vapotherm 35.00 12/23/17 10:00 113 23 134/70 (91) 99 Vapotherm 35.00 35.00 12/23/17 09:00 107 17 120/76 (91) 99 Vapotherm 35.00 35.00 12/23/17 08:15 98 Vapotherm 40.00 35 12/23/17 08:07 96.0 101 16 120/96 (104) 98 Vapotherm 35.00 40.00 12/23/17 08:00 107 35 120/96 (104) 100 Vapotherm 35.00 35.00 12/23/17 07:00 97 12/23/17 07:00 97 21 124/78 (93) 100 NIV Bilevel 35.00 40.00 I & O 12/24/17 07:00 Intake Total 1486 ml Output Total 1775 ml Balance -289 ml General Appearance: Moderate Distress HEENT: PERRL/EOMI, Normal ENT Inspection, Pharynx Normal Neck: Normal Inspection, Non Tender, Supple Respiratory: Decreased Breath Sounds, Respiratory Distress Cardiovascular: No Edema, No Gallop, Tachycardia Capillary Refill: Less Than 3 Seconds Peripheral Pulses: 2+ Carotid (R), 2+ Carotid (L), 2+ Radial Pulses (R), 2+ Radial Pulses (L) Gastrointestinal: normal bowel sounds, non tender, soft Extremity: Normal Capillary Refill Neurologic/Psychiatric: Alert, Oriented x3 Skin: Normal Color, Warm/Dry Lymphatic: No Adenopathy Results Lab Laboratory Tests 12/23/17 03:15 12/24/17 03:20 Assessment/Plan Assessment/Plan Acute respiratoy failure -BIPAP PRN -Will trial patient off BiPAP this AM -Hep lock IVF recently dx with lung cancer -Oncology following -radiation Pneumonia with severe sepsis -garza culture -continue Vanco and zosyn Anemia -monitor Debility/deconditioning MARLO FORRESTER DO Dec 24, 2017 06:58
--- NOTE | 2017-12-24 07:51 | Diagnostic Imaging Report ---
INDICATION: Respiratory distress. Hypoxia. COMPARISON: 12/23/2017 FINDINGS: Single frontal radiographic view of the chest was obtained and again demonstrates scattered patchy and confluent infiltrates throughout the left lung, stable compared to prior exam. There is background of COPD changes. No large effusion or pneumothorax is seen on either side. Cardiac silhouette is partially obscured, but appears to be within normal limits. Bony structures show no gross acute abnormalities. IMPRESSION: 1. Stable exam of the chest showing diffuse left-sided infiltrates. 2. Background of COPD changes. Dictated by: Dictated on workstation # [id number]
[2017-12-24] MEDS ORDERED: TROUGH ORDER-PHARMACY XX NR (08:00)
[2017-12-24] MEDS: DOCUSATE SODIUM 100 MG (COLACE) CAP PO SCH ×2 (08:20→20:42)
[2017-12-24] MEDS: VANCOMYCIN 1500 MG/NS 500 ML IVPB IV SCH ×4 (08:20→20:41)
--- NOTE | 2017-12-24 09:16 | Progress Note-Hospitalist ---
Subjective HPI/CC On Admission Date Seen by Provider: Dec 24, 2017 Time Seen by Provider: 09:00 CC: Respiratory distress HPI: This is a 57-year-old white male who was just discharged from hospital in [facility] and was set to be admitted to inpatient rehabilitation of which he was upon arrival nursing staff contacted me regarding respiratory distress. Apparently he is just had a recent diagnosis of lung cancer of which Dr. Tirado has been involved and will be undergoing radiation treatment of which he's had two treatments already. He was diagnosed with 2 bouts of pneumonia in the past one month requiring rehospitalization and had just completed Levaquin 10 days prior to transferring to [facility]. 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 He is a previous smoker. He reports that his had leukemia 7 years ago and 2-1/2 years ago and he has been in [facility] since that time. Unclear the type of lung cancer he has been Dr. Jain will be consulted for radiation treatment here via [facility]. He was not discharged home on oxygen and was not discharged on BiPAP since he was being placed in a hospital facility in inpatient rehabilitation when he was transferred to [facility]. Subjective/Events-last exam Patient doing well Vapotherm currently tolerated Bowels are moving Eating and drinking Shortness of breath continues Lactic acid now normal after IV fluid resuscitation but patient still unable to receive radiation treatment for the lung cancer non-small cell type because he needs to be lying flat for 20 minutes Will initiate positive care consult in case this progresses more rapidly and will need end-of-life care Once his home medication reconciled and restarted so I did do that Urinating well Overall doing about the same Review of Systems General: Malaise Pulmonary: Dyspnea, Cough, Pleuritic Chest Pain Focused Exam Lactate Level 12/23/17 09:45: Lactic Acid Level 2.51*H 12/23/17 12:27: Lactic Acid Level 2.44*H 12/23/17 17:03: Lactic Acid Level 1.56 Objective Exam Vital Signs Vital Signs Date Time Temp Pulse Resp B/P (MAP) Pulse Ox O2 Delivery O2 Flow Rate FiO2 12/24/17 09:16 182/98 (126) 95 Vapotherm 35.00 35.00 12/24/17 09:00 94 19 12/24/17 07:44 35 12/24/17 07:32 97.8 Capillary Refill : Less Than 3 Seconds General Appearance: No Apparent Distress, WD/WN, Chronically ill Respiratory: Crackles, Decreased Breath Sounds, Other (improved compared to yesterday) Cardiovascular: Regular Rate, Rhythm, No Edema, No Gallop, No JVD, No Murmur, Normal Peripheral Pulses, Tachycardia Neurologic/Psychiatric: Alert, Oriented x3, No Motor/Sensory Deficits, Normal Mood/Affect Results/Procedures Lab Laboratory Tests 12/24/17 03:20 Patient resulted labs reviewed. Assessment/Plan Assessment and Plan Assess & Plan/Chief Complaint Assessment: Lung cancer non-small cell type Pneumonia severe and resistant type AECOPD Former smoker Plan: Appreciate Dr. Garza consultation Empiric antibiotics of Zosyn and vancomycin Dr. Jain for radiation treatment of lung cancer when patient can lie on radiation treatment table for 20 minutes Monitor labs closely BiPAP prn with Vapotherm PT evaluation Diagnosis/Problems Diagnosis/Problems (1) Acute respiratory failure with hypoxia Status: Acute Assessment & Plan: BiPAP use with oxygen and nebulizer treatments (2) Sepsis Status: Resolved Assessment & Plan: IV fluid per protocol Qualifiers: Sepsis type: sepsis due to unspecified organism Qualified Codes: A41.9 - Sepsis, unspecified organism (3) Pneumonia Status: Acute Assessment & Plan: Maintain vancomycin and Zosyn empiric antibiotics coverage Qualifiers: Pneumonia type: due to unspecified organism Laterality: left Lung location: lower lobe of lung Qualified Codes: J18.1 - Lobar pneumonia, unspecified organism (4) Lung cancer Status: Chronic Assessment & Plan: Obtained records from [facility] regarding specifics on lung cancer and it is non-small cell type Qualifiers: Laterality: left Lung location: unspecified part of lung Qualified Codes : C34.92 - Malignant neoplasm of unspecified part of left bronchus or lung (5) COPD (chronic obstructive pulmonary disease) Status: Acute Qualifiers: COPD type: unspecified COPD Qualified Codes: J44.9 - Chronic obstructive pulmonary disease, unspecified (6) Former smoker Status: Chronic (7) Leukocytosis Status: Acute Qualifiers: Leukocytosis type: leukemoid reaction Qualified Codes: D72.823 - Leukemoid reaction (8) Prophylactic measure Status: Acute Assessment & Plan: Lovenox for DVT Px Clinical Quality Measures DVT/VTE Risk/Contraindication: Risk Factor Score Per Nursin RFS Level Per Nursing on Admit: 4+=Very High ANTONIA FRIAS DO Dec 24, 2017 09:16
[2017-12-24] MEDS: ASPIRIN 325 MG (5 GR) TABLET PO SCH (09:21)
[2017-12-24] MEDS: ATENOLOL 50 MG (TENORMIN) TAB PO SCH (09:21)
[2017-12-24] MEDS: buPROPion SR 150 MG (WELLBUTRIN SR) TAB PO SCH ×2 (09:25→20:42)
[2017-12-24] MEDS: MELOXICAM 7.5 MG (MOBIC) TABLET PO SCH (09:25)
[2017-12-24] MEDS ORDERED: HYDROcodone/APAP 5 MG/325 MG (LORTAB) TAB PO PRN (09:30)
[2017-12-24] MEDS: lisINopril 20 MG (PRINIVIL) TABLET PO SCH (09:51)
[2017-12-24] MEDS: HYDROCHLOROTHIAZIDE 12.5 MG (HCTZ) CAP PO SCH (09:51)
--- NOTE | 2017-12-24 11:34 | Physical Therapy Progress Note ---
Therapy Progress Note Patient adamantly declined PT due to increase SOB with no activity. Patient is currently on vapotherm 35%/35L with SAO2 93%. RN present. PT respects patient wishes and will attempt in a.m. 1 ref CARLEE GOMEZ PT Dec 24, 2017 11:34
[2017-12-24] MEDS: morphine INJ 4 MG/ML 1 ML (VIAL/SYRINGE) IVP PRN ×2 (14:37→22:12)
--- NOTE | 2017-12-24 14:38 | Physical Therapy Progress Note ---
Therapy Progress Note PT received a call from RNShae, that the patient wanted to attempt PT. This PT arrived as patient was receiving/completing a breathing treatment. Patient attempted to sit upright in bed,however, became increasingly SOB requiring RN to issue morphine for air hunger and then place patient on Bipap. PT will continue to monitor patient status to initiate PT. 1 visit CARLEE GOMEZ PT Dec 24, 2017 14:38
[2017-12-24] MEDS: RT-ADVAIR HFA 115/21 MCG PER PUFF IH SCH (18:54)
[2017-12-24] MEDS: ATORVASTATIN 80 MG (LIPITOR) TABLET PO SCH (20:42)
[2017-12-24] MEDS: ENOXAPARIN 40 MG/0.4 ML (LOVENOX) SYR SC SCH (20:42)
[2017-12-25] VITALS (33 sets, daily range): BP systolic 88–137; BP diastolic 58–88
[2017-12-25] MEDS: methylPREDNISolone 40 MG/ML (Solu-MEDROL) VIAL IV SCH ×4 (00:17→19:57)
[2017-12-25] MEDS: PIPERACILLIN/TAZO 3.375 GM/D5W 100 ML IV SCH ×6 (02:11→17:25)
[2017-12-25] MEDS: RT-ALBUTEROL/IPRATROPIUM 3 ML (DUONEB) VIAL INH SCH ×6 (02:22→21:21)
[2017-12-25] MEDS: NS IV 1000 ML 1,000 ML IV SCH (02:41)
[2017-12-25 04:28] LABS: BASOPHILS % (AUTO) 0 % (0-10); EOSINOPHILS % (AUTO) 0 % (0-10); HEMATOCRIT 37 % (40-54); HEMOGLOBIN 11.9 G/DL (13.3-17.7); LYMPHOCYTES # (AUTO) 2.9 X 10^3 (1.0-4.0); LYMPHOCYTES % (AUTO) 10 % (12-44); MEAN CORPUSCULAR HEMOGLOBIN 30 PG (25-34); MEAN CORPUSCULAR HGB CONC 32 G/DL (32-36); MEAN CORPUSCULAR VOLUME 92 FL (80-99); MEAN PLATELET VOLUME 10.3 FL (7.4-10.4); MONOCYTES # (AUTO) 2.6 X 10^3 (0.0-1.0); MONOCYTES % (AUTO) 9 % (0-12); NEUTROPHILS # (AUTO) 24.2 X 10^3 (1.8-7.8); NEUTROPHILS % (AUTO) 81 % (42-75); PLATELET COUNT 257 10^3/uL (130-400); RED BLOOD COUNT 4.03 10^6/uL (4.35-5.85); RED CELL DISTRIBUTION WIDTH 15.7 % (10.0-14.5); WHITE BLOOD COUNT 29.7 10^3/uL (4.3-11.0)
[2017-12-25 04:43] LABS: BUN/CREATININE RATIO 28; CALCIUM 8.6 MG/DL (8.5-10.1); CARBON DIOXIDE 21 MMOL/L (21-32); CHLORIDE 109 MMOL/L (98-107); CREATININE SERUM 0.79 MG/DL (0.60-1.30); GFR ESTIMATED > 60; GLUCOSE 107 MG/DL (70-105); MAGNESIUM 2.1 MG/DL (1.8-2.4); PHOSPHORUS 3.1 MG/DL (2.3-4.7); POTASSIUM 4.6 MMOL/L (3.6-5.0); SODIUM 141 MMOL/L (135-145)
[2017-12-25 04:45] LABS: ANISOCYTOSIS SLIGHT; BAND NEUTROPHILS 4 %; BASOPHILS % (MANUAL) 0 %; EOSINOPHILS % (MANUAL) 0 %; LYMPHOCYTES % (MANUAL) 4 %; MONOCYTES % (MANUAL) 8 %; NEUTROPHILS % (MANUAL) 84 %; TOXIC GRANULATION/VACUOLAZATIO 1+
--- NOTE | 2017-12-25 06:09 | Pulmonary Progress Note ---
Subjective Time Seen by Provider: 06:09 Subjective/Events-last exam SOB nonproductive cough Focused Exam Lactate Level 12/23/17 09:45: Lactic Acid Level 2.51*H 12/23/17 12:27: Lactic Acid Level 2.44*H 12/23/17 17:03: Lactic Acid Level 1.56 Exam Exam Vital Signs Date Time Temp Pulse Resp B/P (MAP) Pulse Ox O2 Delivery O2 Flow Rate FiO2 12/25/17 04:13 89 21 96 25.00 12/25/17 04:00 98.9 12/25/17 04:00 NIV Bilevel 25 12/25/17 03:00 82 10 98/75 (83) 97 NIV Bilevel 25.00 12/25/17 02:23 68 16 96 25.00 12/25/17 02:00 81 11 99/73 (82) 96 NIV Bilevel 25.00 12/25/17 01:00 81 9 109/86 (94) 96 NIV Bilevel 25.00 12/25/17 01:00 81 12/25/17 00:00 NIV Bilevel 25 12/25/17 00:00 98.2 12/25/17 00:00 84 10 104/77 (86) 96 NIV Bilevel 25.00 12/24/17 23:00 86 11 108/75 (86) 98 NIV Bilevel 25.00 12/24/17 22:00 93 19 118/102 (107) 95 NIV Bilevel 25.00 12/24/17 21:15 92 16 97 25.00 12/24/17 21:00 96 20 119/99 (106) 95 NIV Bilevel 25.00 12/24/17 20:00 NIV Bilevel 25 12/24/17 20:00 98.9 12/24/17 20:00 101 16 136/94 (108) 91 NIV Bilevel 25.00 12/24/17 19:00 84 12 112/86 (95) 100 NIV Bilevel 25.00 12/24/17 19:00 84 12/24/17 18:54 84 18 96 25.00 12/24/17 18:00 84 10 104/70 (81) 95 NIV Bilevel 25.00 12/24/17 17:00 84 12 98/72 (81) 99 NIV Bilevel 25.00 12/24/17 16:42 84 14 97 30.00 12/24/17 16:17 NIV Bilevel 25.00 12/24/17 16:00 94 19 115/69 (84) 94 NIV Bilevel 30.00 12/24/17 15:14 NIV Bilevel 30 18 15:13 98.5 12/24/17 15:00 107 25 98/54 (69) 96 NIV Bilevel 30.00 12/24/17 14:46 93 NIV Bilevel 30.00 12/24/17 14:45 115 23 153/104 (120) 86 NIV Bilevel 30.00 12/24/17 14:40 116 25 92 30.00 12/24/17 14:37 113 24 153/104 (120) 91 NIV Bilevel 24.00 12/24/17 14:17 94 Vapotherm 30.00 30 12/24/17 14:15 Vapotherm 30.00 30.00 12/24/17 13:00 81 12/24/17 12:00 80 18 143/93 (110) 95 NIV Bilevel 24.00 12/24/17 11:44 80 16 94 24.00 12/24/17 11:38 93 NIV Bilevel 24.00 12/24/17 11:35 94 Vapotherm 35.00 35 12/24/17 11:32 99.2 12/24/17 11:00 84 17 138/95 (109) 96 Vapotherm 35.00 35.00 12/24/17 10:36 95 Vapotherm 35.00 35 12/24/17 10:30 80 22 148/88 (108) 96 Vapotherm 35.00 35.00 12/24/17 10:00 147/86 (106) 12/24/17 10:00 97 20 147/86 (106) 97 Vapotherm 35.00 35.00 12/24/17 09:57 151/91 (111) 12/24/17 09:16 182/98 (126) 95 Vapotherm 35.00 35.00 12/24/17 09:00 94 19 165/104 (124) 97 Vapotherm 35.00 35.00 12/24/17 08:00 104 18 140/97 (111) 96 Vapotherm 35.00 35.00 12/24/17 07:44 96 Vapotherm 35.00 35 12/24/17 07:32 97.8 106 20 149/101 (117) 96 Vapotherm 35.00 35.00 12/24/17 07:29 95 Vapotherm 35.00 35 12/24/17 07:10 94 16 95 30.00 12/24/17 07:00 105 12/24/17 07:00 105 19 168/109 (128) 98 NIV Bilevel 30.00 I & O 12/25/17 07:00 Intake Total 400 ml Output Total 1400 ml Balance -1000 ml General Appearance: No Apparent Distress, WD/WN, Chronically ill HEENT: PERRL/EOMI, Normal ENT Inspection, Pharynx Normal Neck: Normal Inspection, Non Tender, Supple Respiratory: Crackles, Decreased Breath Sounds, Other (improved compared to yesterday) Cardiovascular: Regular Rate, Rhythm, No Edema, No Gallop, No JVD, No Murmur, Normal Peripheral Pulses, Tachycardia Capillary Refill: Less Than 3 Seconds Peripheral Pulses: 2+ Carotid (R), 2+ Carotid (L), 2+ Radial Pulses (R), 2+ Radial Pulses (L) Gastrointestinal: normal bowel sounds, non tender, soft Extremity: Normal Capillary Refill Neurologic/Psychiatric: Alert, Oriented x3, No Motor/Sensory Deficits, Normal Mood/Affect Skin: Normal Color, Warm/Dry Lymphatic: No Adenopathy Results Lab Laboratory Tests 12/24/17 03:20 12/25/17 04:20 Assessment/Plan Assessment/Plan Acute respiratory failure -BIPAP PRN -Will trial patient off BiPAP this AM -Hep lock IVF recently dx with lung cancer -Oncology following -radiation Pneumonia with severe sepsis -garza culture -continue Vanco and zosyn Anemia -monitor Debility/deconditioning 233 MARLO FORRESTER DO Dec 25, 2017 06:09
[2017-12-25] MEDS: POTASSIUM CL 10MEQ/50ML IVPB 50 ML IV SCH (06:16)
[2017-12-25] MEDS: MAGNESIUM 1 GM/100 ML IVPB 100 ML IV SCH (06:16)
[2017-12-25] MEDS: KCL 20 MEQ TAB (K-DUR) PO SCH (06:16)
--- NOTE | 2017-12-25 06:34 | Pulmonary Progress Note ---
Subjective Time Seen by Provider: 06:31 Subjective/Events-last exam PT has been on BiPAP since yesterday afternoon. Pt refused PT/OT last night. Focused Exam Lactate Level 12/23/17 09:45: Lactic Acid Level 2.51*H 12/23/17 12:27: Lactic Acid Level 2.44*H 12/23/17 17:03: Lactic Acid Level 1.56 Exam Exam Vital Signs Date Time Temp Pulse Resp B/P (MAP) Pulse Ox O2 Delivery O2 Flow Rate FiO2 12/25/17 06:00 84 12 102/74 (83) 97 NIV Bilevel 25.00 12/25/17 05:00 84 15 88/71 (77) 96 NIV Bilevel 25.00 12/25/17 04:13 89 21 96 25.00 12/25/17 04:00 98.9 12/25/17 04:00 79 11 103/69 (80) 96 NIV Bilevel 25.00 12/25/17 04:00 NIV Bilevel 25 12/25/17 03:00 82 10 98/75 (83) 97 NIV Bilevel 25.00 12/25/17 02:23 68 16 96 25.00 12/25/17 02:00 81 11 99/73 (82) 96 NIV Bilevel 25.00 12/25/17 01:00 81 9 109/86 (94) 96 NIV Bilevel 25.00 12/25/17 01:00 81 12/25/17 00:00 NIV Bilevel 25 12/25/17 00:00 98.2 12/25/17 00:00 84 10 104/77 (86) 96 NIV Bilevel 25.00 12/24/17 23:00 86 11 108/75 (86) 98 NIV Bilevel 25.00 12/24/17 22:00 93 19 118/102 (107) 95 NIV Bilevel 25.00 12/24/17 21:15 92 16 97 25.00 12/24/17 21:00 96 20 119/99 (106) 95 NIV Bilevel 25.00 12/24/17 20:00 NIV Bilevel 25 12/24/17 20:00 98.9 12/24/17 20:00 101 16 136/94 (108) 91 NIV Bilevel 25.00 12/24/17 19:00 84 12 112/86 (95) 100 NIV Bilevel 25.00 12/24/17 19:00 84 12/24/17 18:54 84 18 96 25.00 12/24/17 18:00 84 10 104/70 (81) 95 NIV Bilevel 25.00 12/24/17 17:00 84 12 98/72 (81) 99 NIV Bilevel 25.00 12/24/17 16:42 84 14 97 30.00 12/24/17 16:17 NIV Bilevel 25.00 12/24/17 16:00 94 19 115/69 (84) 94 NIV Bilevel 30.00 12/24/17 15:14 NIV Bilevel 30 12/24/17 15:13 98.5 12/24/17 15:00 107 25 98/54 (69) 96 NIV Bilevel 30.00 12/24/17 14:46 93 NIV Bilevel 30.00 12/24/17 14:45 115 23 153/104 (120) 86 NIV Bilevel 30.00 12/24/17 14:40 116 25 92 30.00 12/24/17 14:37 113 24 153/104 (120) 91 NIV Bilevel 24.00 12/24/17 14:17 94 Vapotherm 30.00 30 12/24/17 14:15 Vapotherm 30.00 30.00 12/24/17 13:00 81 12/24/17 12:00 80 18 143/93 (110) 95 NIV Bilevel 24.00 12/24/17 11:44 80 16 94 24.00 12/24/17 11:38 93 NIV Bilevel 24.00 12/24/17 11:35 94 Vapotherm 35.00 35 12/24/17 11:32 99.2 12/24/17 11:00 84 17 138/95 (109) 96 Vapotherm 35.00 35.00 12/24/17 10:36 95 Vapotherm 35.00 35 12/24/17 10:30 80 22 148/88 (108) 96 Vapotherm 35.00 35.00 12/24/17 10:00 147/86 (106) 12/24/17 10:00 97 20 147/86 (106) 97 Vapotherm 35.00 35.00 12/24/17 09:57 151/91 (111) 12/24/17 09:16 182/98 (126) 95 Vapotherm 35.00 35.00 12/24/17 09:00 94 19 165/104 (124) 97 Vapotherm 35.00 35.00 12/24/17 08:00 104 18 140/97 (111) 96 Vapotherm 35.00 35.00 12/24/17 07:44 96 Vapotherm 35.00 35 12/24/17 07:32 97.8 106 20 149/101 (117) 96 Vapotherm 35.00 35.00 12/24/17 07:29 95 Vapotherm 35.00 35 12/24/17 07:10 94 16 95 30.00 12/24/17 07:00 105 12/24/17 07:00 105 19 168/109 (128) 98 NIV Bilevel 30.00 I & O 12/25/17 07:00 Intake Total 400 ml Output Total 1800 ml Balance -1400 ml General Appearance: No Apparent Distress, WD/WN, Chronically ill HEENT: PERRL/EOMI, Normal ENT Inspection, Pharynx Normal Neck: Normal Inspection, Non Tender, Supple Respiratory: Crackles, Decreased Breath Sounds, Other (improved compared to yesterday) Cardiovascular: Regular Rate, Rhythm, No Edema, No Gallop, No JVD, No Murmur, Normal Peripheral Pulses, Tachycardia Capillary Refill: Less Than 3 Seconds Peripheral Pulses: 2+ Carotid (R), 2+ Carotid (L), 2+ Radial Pulses (R), 2+ Radial Pulses (L) Gastrointestinal: normal bowel sounds, non tender, soft Extremity: Normal Capillary Refill Neurologic/Psychiatric: Alert, Oriented x3, No Motor/Sensory Deficits, Normal Mood/Affect Skin: Normal Color, Warm/Dry Lymphatic: No Adenopathy Results Lab Laboratory Tests 12/24/17 03:20 12/25/17 04:20 Assessment/Plan Assessment/Plan Acute respiratory failure -BIPAP -- PT has been using BiPAP most of the day. -Unless pt is in respiratory distress will limit BiPAP from 8pm to 7AM -Increase activity - pt lectured about not refusion PT/OT -Hep lock IVF -Decrease SOlumedrol to Q 12 recently dx with lung cancer NSCLC -Oncology following -radiation planned Pneumonia with severe sepsis -garza culture -Vanco and zosyn Anemia -monitor Debility/deconditioning Increase activity up to chair during the day. D/w RN, RT and patient current plan of care. Pt has been having panic attacks daily and then going back on BiPAP. I am going to start Risperdal and continue to monitor in ICU for another day. 233 MARLO FORRESTER DO Dec 25, 2017 06:34
[2017-12-25] MEDS: RT-ADVAIR HFA 115/21 MCG PER PUFF IH SCH ×2 (06:48→19:29)
[2017-12-25] MEDS: VANCOMYCIN 1500 MG/NS 500 ML IVPB IV SCH ×4 (07:54→19:59)
[2017-12-25] MEDS: MULTIVIT W/MINERALS TAB (THERAGRAN M) PO SCH (07:54)
[2017-12-25] MEDS: ATENOLOL 50 MG (TENORMIN) TAB PO SCH (07:55)
[2017-12-25] MEDS: DOCUSATE SODIUM 100 MG (COLACE) CAP PO SCH ×2 (07:55→19:58)
[2017-12-25] MEDS: ASPIRIN 325 MG (5 GR) TABLET PO SCH (07:55)
[2017-12-25] MEDS: MELOXICAM 7.5 MG (MOBIC) TABLET PO SCH (07:56)
[2017-12-25] MEDS: risperiDONE 0.25 MG (RisperDAL) TAB PO SCH ×2 (07:56→19:58)
[2017-12-25] MEDS: lisINopril 20 MG (PRINIVIL) TABLET PO SCH (07:57)
[2017-12-25] MEDS: HYDROCHLOROTHIAZIDE 12.5 MG (HCTZ) CAP PO SCH (08:17)
[2017-12-25] MEDS: buPROPion SR 150 MG (WELLBUTRIN SR) TAB PO SCH ×2 (08:18→19:58)
[2017-12-25] MEDS ORDERED: risperiDONE 1 MG (RisperDAL) TAB PO SCH (09:00)
[2017-12-25] MEDS ORDERED: LEVALBUTEROL TARTRATE IH SCH (09:00)
[2017-12-25] MEDS: UMECLIDINIUM BROMIDE (INCRUSE ELLIPTA) 7'S IH SCH (10:53)
--- NOTE | 2017-12-25 11:05 | Progress Note-Hospitalist ---
Subjective HPI/CC On Admission Date Seen by Provider: Dec 25, 2017 Time Seen by Provider: 11:00 CC: Respiratory distress HPI: This is a 57-year-old white male who was just discharged from hospital in [facility] and was set to be admitted to inpatient rehabilitation of which he was upon arrival nursing staff contacted me regarding respiratory distress. Apparently he is just had a recent diagnosis of lung cancer of which Dr. Tirado has been involved and will be undergoing radiation treatment of which he's had two treatments already. He was diagnosed with 2 bouts of pneumonia in the past one month requiring rehospitalization and had just completed Levaquin 10 days prior to transferring to [facility]. 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 He is a previous smoker. He reports that his had leukemia 7 years ago and 2-1/2 years ago and he has been in [facility] since that time. Unclear the type of lung cancer he has been Dr. Jain will be consulted for radiation treatment here [facility]. He was not discharged home on oxygen and was not discharged on BiPAP since he was being placed in a hospital facility in inpatient rehabilitation when he was transferred to [facility]. Subjective/Events-last exam Patient doing much better Panic attacks are requiring him to go back to BiPAP so Risperdal was started and patient will be limited on BiPAP use except for evening and night hours Patient doing much better currently White count is up at 29,000 likely steroid related also Tolerating antibiotics + BM Review of Systems General: Fatigue Pulmonary: Dyspnea, Cough Focused Exam Lactate Level 12/23/17 09:45: Lactic Acid Level 2.51*H 12/23/17 12:27: Lactic Acid Level 2.44*H 12/23/17 17:03: Lactic Acid Level 1.56 Objective Exam Vital Signs Vital Signs Date Time Temp Pulse Resp B/P (MAP) Pulse Ox O2 Delivery O2 Flow Rate FiO2 12/25/17 11:00 85 13 116/77 (90) 97 NIV Bilevel 25.00 12/25/17 08:00 25 12/25/17 04:00 98.9 Capillary Refill : Less Than 3 Seconds General Appearance: No Apparent Distress, WD/WN, Chronically ill, Other ( improved) Respiratory: Chest Non Tender, No Accessory Muscle Use, No Respiratory Distress , Crackles, Decreased Breath Sounds Cardiovascular: Regular Rate, Rhythm, No Edema, No Gallop, No JVD, No Murmur, Normal Peripheral Pulses Neurologic/Psychiatric: Alert, Oriented x3, No Motor/Sensory Deficits, Normal Mood/Affect Results/Procedures Lab Laboratory Tests 12/25/17 04:20 Patient resulted labs reviewed. Assessment/Plan Assessment and Plan Assess & Plan/Chief Complaint Assessment: Lung cancer non-small cell type Pneumonia severe and resistant type AECOPD Former smoker Plan: Appreciate Dr. Garza consultation Empiric antibiotics of Zosyn and vancomycin Dr. Jain for radiation treatment of lung cancer when patient can lie on radiation treatment table for 20 minutes Monitor labs closely BiPAP prn at night with Vapotherm PT evaluation Diagnosis/Problems Diagnosis/Problems (1) Acute respiratory failure with hypoxia Status: Acute Assessment & Plan: BiPAP use with oxygen and nebulizer treatments (2) Sepsis Status: Resolved Assessment & Plan: IV fluid per protocol Qualifiers: Sepsis type: sepsis due to unspecified organism Qualified Codes: A41.9 - Sepsis, unspecified organism (3) Pneumonia Status: Acute Assessment & Plan: Maintain vancomycin and Zosyn empiric antibiotics coverage Qualifiers: Pneumonia type: due to unspecified organism Laterality: left Lung location: lower lobe of lung Qualified Codes: J18.1 - Lobar pneumonia, unspecified organism (4) Lung cancer Status: Chronic Assessment & Plan: Obtained records from [facility] regarding specifics on lung cancer and it is non-small cell type Qualifiers: Laterality: left Lung location: unspecified part of lung Qualified Codes : C34.92 - Malignant neoplasm of unspecified part of left bronchus or lung (5) COPD (chronic obstructive pulmonary disease) Status: Acute Qualifiers: COPD type: unspecified COPD Qualified Codes: J44.9 - Chronic obstructive pulmonary disease, unspecified (6) Former smoker Status: Chronic (7) Leukocytosis Status: Acute Qualifiers: Leukocytosis type: leukemoid reaction Qualified Codes: D72.823 - Leukemoid reaction (8) Prophylactic measure Status: Acute Assessment & Plan: Lovenox for DVT Px Clinical Quality Measures DVT/VTE Risk/Contraindication: Risk Factor Score Per Nursin RFS Level Per Nursing on Admit: 4+=Very High ANTONIA FRIAS DO Dec 25, 2017 11:05
--- NOTE | 2017-12-25 12:03 | Diagnostic Imaging Report ---
INDICATION: Respiratory distress. Portable chest 4:05 AM There is left perihilar infiltrate. This is improved slightly from the previous day. There are emphysematous changes in the lungs. IMPRESSION: Improving left perihilar infiltrate. Dictated by: Dictated on workstation # [id number]
--- NOTE | 2017-12-25 12:18 | Physical Therapy Progress Note ---
Therapy Progress Note Attempted PT x 2 this date. Upon initial visit, pt. already up in chair, stated his legs felt heavy and declined additional therapy at this time. On second PT attempt, pt. reported he had just returned to bed and again declined additional therapy. Pt. is encouraged to transfer to chair again this PM and he is agreeable. Nursing confirmed pt. was up in chair about 4 hours this AM needed minimal assist with transfers bed to/from chair. We will return 12/26 to advance pt's mobility as able. 1, visit only ([id number]) NICK CAMARENA PT Dec 25, 2017 12:18
[2017-12-25] MEDS: ENOXAPARIN 40 MG/0.4 ML (LOVENOX) SYR SC SCH (19:57)
[2017-12-25] MEDS: ATORVASTATIN 80 MG (LIPITOR) TABLET PO SCH (19:58)
[2017-12-26] VITALS (16 sets, daily range): BP systolic 95–136; BP diastolic 63–89
[2017-12-26] MEDS: RT-ALBUTEROL/IPRATROPIUM 3 ML (DUONEB) VIAL INH SCH ×6 (01:36→22:09)
[2017-12-26] MEDS: PIPERACILLIN/TAZO 3.375 GM/D5W 100 ML IV SCH ×6 (01:50→19:09)
[2017-12-26 04:04] LABS: BASOPHILS % (AUTO) 0 % (0-10); EOSINOPHILS # (AUTO) 0.1 10^3/uL (0.0-0.3); EOSINOPHILS % (AUTO) 0 % (0-10); HEMATOCRIT 37 % (40-54); HEMOGLOBIN 11.8 G/DL (13.3-17.7); LYMPHOCYTES # (AUTO) 1.8 X 10^3 (1.0-4.0); LYMPHOCYTES % (AUTO) 8 % (12-44); MEAN CORPUSCULAR HEMOGLOBIN 29 PG (25-34); MEAN CORPUSCULAR HGB CONC 32 G/DL (32-36); MEAN CORPUSCULAR VOLUME 89 FL (80-99); MEAN PLATELET VOLUME 10.6 FL (7.4-10.4); MONOCYTES # (AUTO) 1.8 X 10^3 (0.0-1.0); MONOCYTES % (AUTO) 8 % (0-12); NEUTROPHILS # (AUTO) 19.2 X 10^3 (1.8-7.8); NEUTROPHILS % (AUTO) 84 % (42-75); PLATELET COUNT 196 10^3/uL (130-400); RED BLOOD COUNT 4.12 10^6/uL (4.35-5.85); RED CELL DISTRIBUTION WIDTH 15.6 % (10.0-14.5); WHITE BLOOD COUNT 22.9 10^3/uL (4.3-11.0)
[2017-12-26 04:23] LABS: BUN/CREATININE RATIO 30; CALCIUM 8.2 MG/DL (8.5-10.1); CARBON DIOXIDE 23 MMOL/L (21-32); CHLORIDE 109 MMOL/L (98-107); CREATININE SERUM 0.69 MG/DL (0.60-1.30); GFR ESTIMATED > 60; GLUCOSE 133 MG/DL (70-105); MAGNESIUM 1.9 MG/DL (1.8-2.4); PHOSPHORUS 2.8 MG/DL (2.3-4.7); POTASSIUM 4.1 MMOL/L (3.6-5.0); SODIUM 140 MMOL/L (135-145)
[2017-12-26] MEDS: POTASSIUM CL 10MEQ/50ML IVPB 50 ML IV SCH (04:32)
[2017-12-26] MEDS: KCL 20 MEQ TAB (K-DUR) PO SCH (04:33)
[2017-12-26] MEDS: MAGNESIUM 1 GM/100 ML IVPB 100 ML IV SCH (04:33)
[2017-12-26] MEDS: NS IV 1000 ML 1,000 ML IV SCH (06:07)
[2017-12-26] MEDS: RT-ADVAIR HFA 115/21 MCG PER PUFF IH SCH ×2 (06:31→18:14)
--- NOTE | 2017-12-26 06:54 | Pulmonary Progress Note ---
Subjective Time Seen by Provider: 06:55 Subjective/Events-last exam PT is doing better. He tolerated increased activity yesterday. Focused Exam Lactate Level 12/23/17 09:45: Lactic Acid Level 2.51*H 12/23/17 12:27: Lactic Acid Level 2.44*H 12/23/17 17:03: Lactic Acid Level 1.56 Exam Exam Vital Signs Date Time Temp Pulse Resp B/P (MAP) Pulse Ox O2 Delivery O2 Flow Rate FiO2 12/26/17 06:33 98 Nasal Cannula 3.00 12/26/17 06:00 101 13 126/89 (101) 96 NIV Bilevel 25.00 12/26/17 05:00 89 15 109/83 (92) 98 NIV Bilevel 25.00 12/26/17 04:00 87 14 108/72 (84) 97 NIV Bilevel 25.00 12/26/17 04:00 NIV Bilevel 25 12/26/17 03:52 87 14 97 25.00 12/26/17 03:32 96.3 12/26/17 03:00 88 16 113/80 (91) 97 NIV Bilevel 25.00 12/26/17 02:00 89 16 100/77 (85) 95 NIV Bilevel 25.00 12/26/17 01:36 87 16 96 25.00 12/26/17 01:00 90 12/26/17 01:00 91 15 95/63 (74) 96 NIV Bilevel 25.00 12/26/17 00:00 90 15 100/78 (85) 96 NIV Bilevel 25.00 12/26/17 00:00 90 18 100/78 (85) 95 NIV Bilevel 25.00 12/26/17 00:00 NIV Bilevel 25 12/26/17 00:00 96.8 12/25/17 23:22 90 19 95 25.00 12/25/17 23:00 93 17 98/72 (81) 96 NIV Bilevel 25.00 12/25/17 22:00 93 18 111/73 (86) 97 NIV Bilevel 25.00 12/25/17 21:21 90 17 97 25.00 12/25/17 21:00 91 18 110/79 (89) 96 NIV Bilevel 25.00 12/25/17 20:00 97.9 92 18 137/83 (101) 98 NIV Bilevel 25.00 12/25/17 20:00 NIV Bilevel 25 12/25/17 19:29 94 17 97 25.00 12/25/17 19:25 Nasal Cannula 3.00 12/25/17 19:00 91 17 111/75 (87) 96 NIV Bilevel 25.00 12/25/17 19:00 92 12/25/17 18:00 89 17 108/58 (75) 95 NIV Bilevel 25.00 12/25/17 17:00 90 18 104/69 (81) 96 NIV Bilevel 25.00 12/25/17 16:00 Nasal Cannula 3.00 25 12/25/17 16:00 85 18 125/88 (100) 97 NIV Bilevel 25.00 12/25/17 16:00 96.9 12/25/17 15:00 83 19 116/82 (93) 97 NIV Bilevel 25.00 12/25/17 14:30 99 Nasal Cannula 3.00 12/25/17 14:00 79 17 119/88 (98) 97 NIV Bilevel 25.00 12/25/17 13:00 81 17 111/84 (93) 98 NIV Bilevel 25.00 12/25/17 12:59 82 12/25/17 12:00 78 18 111/69 (83) 95 NIV Bilevel 25.00 12/25/17 12:00 96.5 12/25/17 12:00 Nasal Cannula 3.00 25 12/25/17 11:00 85 13 116/77 (90) 97 NIV Bilevel 25.00 12/25/17 10:57 100 3.00 12/25/17 10:50 99 Nasal Cannula 5.00 12/25/17 10:50 92 99 18 10:00 83 17 113/76 (88) 98 NIV Bilevel 25.00 12/25/17 09:00 92 12 116/81 (93) 97 NIV Bilevel 25.00 12/25/17 08:30 98 16 120/84 (96) 95 NIV Bilevel 25.00 12/25/17 08:00 Nasal Cannula 4.00 25 12/25/17 08:00 104 21 111/83 (92) 97 NIV Bilevel 25.00 12/25/17 07:30 96.9 12/25/17 07:30 101 12 130/85 (100) 96 NIV Bilevel 25.00 12/25/17 07:00 95 12/25/17 07:00 91 17 120/85 (97) 95 NIV Bilevel 25.00 I & O 12/26/17 07:00 Intake Total 1415 ml Output Total 3100 ml Balance -1685 ml General Appearance: No Apparent Distress, WD/WN, Chronically ill, Other ( improved) HEENT: PERRL/EOMI, Normal ENT Inspection, Pharynx Normal Neck: Normal Inspection, Non Tender, Supple Respiratory: Chest Non Tender, No Accessory Muscle Use, No Respiratory Distress , Crackles, Decreased Breath Sounds Cardiovascular: Regular Rate, Rhythm, No Edema, No Gallop, No JVD, No Murmur, Normal Peripheral Pulses Capillary Refill: Less Than 3 Seconds Peripheral Pulses: 2+ Carotid (R), 2+ Carotid (L), 2+ Radial Pulses (R), 2+ Radial Pulses (L) Gastrointestinal: normal bowel sounds, non tender, soft Extremity: Normal Capillary Refill Neurologic/Psychiatric: Alert, Oriented x3, No Motor/Sensory Deficits, Normal Mood/Affect Skin: Normal Color, Warm/Dry Lymphatic: No Adenopathy Results Lab Laboratory Tests 12/25/17 04:20 12/26/17 03:40 Assessment/Plan Assessment/Plan Acute respiratory failure -BIPAP -- PT has been using BiPAP most of the day. -Unless pt is in respiratory distress will limit BiPAP from 8pm to 7AM -Increase activity -Hep lock IVF -SOlumedrol to Q 12 -- change to prednisone 40mg daily recently dx with lung cancer NSCLC -Oncology following -radiation planned Pneumonia with severe sepsis -D/C Vanco and Continue zosyn Anemia -monitor Debility/deconditioning PT was up to chair x 4 hours yesterday. He is weak however tolerated increased activity well. Will transfer to 4th floor. MARLO FORRESTER DO Dec 26, 2017 06:54
--- NOTE | 2017-12-26 08:11 | Diagnostic Imaging Report ---
INDICATION: Lower respiratory infection. Portable chest 3:41 AM FINDINGS: There are emphysematous changes in the lungs. There is large consolidating infiltrate in the perihilar region of the left lung unchanged from previous day. There is no effusion. IMPRESSION: COPD. Stable left perihilar pneumonia. Dictated by: Dictated on workstation # [id number]
[2017-12-26] MEDS: Naltrexone HCl 50 MG TABLET PO SCH ×2 (08:41→09:00)
[2017-12-26] MEDS: ASPIRIN 325 MG (5 GR) TABLET PO SCH (08:42)
[2017-12-26] MEDS: ATENOLOL 50 MG (TENORMIN) TAB PO SCH (08:42)
[2017-12-26] MEDS: buPROPion SR 150 MG (WELLBUTRIN SR) TAB PO SCH ×2 (08:42→21:05)
[2017-12-26] MEDS: risperiDONE 0.25 MG (RisperDAL) TAB PO SCH ×2 (08:42→21:05)
[2017-12-26] MEDS: MELOXICAM 7.5 MG (MOBIC) TABLET PO SCH (08:42)
[2017-12-26] MEDS: MULTIVIT W/MINERALS TAB (THERAGRAN M) PO SCH (08:43)
[2017-12-26] MEDS: lisINopril 20 MG (PRINIVIL) TABLET PO SCH (08:43)
[2017-12-26] MEDS: HYDROCHLOROTHIAZIDE 12.5 MG (HCTZ) CAP PO SCH (08:43)
[2017-12-26] MEDS: DOCUSATE SODIUM 100 MG (COLACE) CAP PO SCH ×2 (08:43→21:05)
[2017-12-26] MEDS: predniSONE 20 MG TAB PO SCH (08:43)
--- NOTE | 2017-12-26 10:31 | Physical Therapy Evaluation ---
PT Evaluation-General Medical Diagnosis Admission Date Dec 22, 2017 at 19:08 Medical Diagnosis: acute respiratory failure Onset Date: Dec 22, 2017 Therapy Diagnosis Therapy Diagnosis: debility/weakness/decreased pulmonary function Height/Weight Height (Feet): 5 Height (Inches): 6.00 Weight (Pounds): 214 Weight (Ounces): 9.0 Precautions Precautions/Isolations: Standard Precautions Weight Bear Status Right Lower Extremity: Right Full Weight Bearing Left Lower Extremity: Left Full Weight Bearing Referral Physician: Lynne Reason for Referral: Evaluation/Treatment Medical History Pertinent Medical History: GERD, HTN Additional Medical History pneumonia with severe sepsis Current History transfer from [facility] and arrived in respiratory failure/new diagnosis lung cancer Reviewed History: Yes Social History Home: Single Level Current Living Status: Alone Prior/Core FIM Prior Level of Function Functional [place] Measure 0=Not Assessed/NA 4=Minimal Assistance 1=Total Assistance 5=Supervision or Setup 2=Maximal Assistance 6=Modified [place] 3=Moderate Assistance 7=Complete [place] Bed Mobility: 7 Transfers (B,C,W/C) (FIM): 7 Gait: 7 Locomotion: 7 PT Evaluation-Current Subjective Patient agrees to PT. He reports he is feeling better. Pain Numeric Pain Scale: 0-No Pain Location: No Pain Reported Objective Patient Orientation: Normal For Age Problem Solving: Fair Attachments: Oxygen (3L NC), IV ROM/Strength ROM Lower Extremities bilateral LE WNL Strength Lower Extremities 4-/5 grossly bilaterally Integumentary/Posture Integumentary refer to nursing notes/noted bilateral LE edema Bowel Incontinence: No Bladder Incontinence: No Posture WFL Neuromuscular (Tone, Coordination, Reflexes) grossly intact Sensory Vision: Wears Glasses Hearing: Functional Sensation Right Lower Extremit: Intact Sensation Left Lower Extremity: Intact Transfers Functional [place] Measure 0=Not Assessed/NA 4=Minimal Assistance 1=Total Assistance 5=Supervision or Setup 2=Maximal Assistance 6=Modified [place] 3=Moderate Assistance 7=Complete [place] Transfers (B, C, W/C) (FIM): 5 Scootin Rollin Supine to/from Sit: 6 Gait Mode of Locomotion: Walk Anticipated Mode of Locomotion: Walk Gait (FIM): 1 Distance (FIM): 1=up to 49 ft Distance: 5' Gait Level of Assist: 5 Gait Persons Needed: 1 Gait Assistive Device: FWW Comments/Gait Description FWW use for energy conservation Balance Sitting Static: Normal Sitting Dynamic: Normal Standing Static: Normal Standing Dynamic: Normal Assessment/Needs 57 y.o. male, will benefit from skilled PT to address functional mobility and pulmonary function with mobility to ensure safe return to home at maximum LOF. Rehab Potential: Guarded Post Rehab Potential-Barriers: lung cancer PT Fdc Goals Fdc Goals PT Fdc Goals Time Frame: Jan 10, 2018 Transfers (B,C,W/C) (FIM): 7 Gait (FIM): 7 Gait distance (FIM): 3=150 ft Distance: 250' Gait Level of Assist: 7 Gait Assistive Device: None Stairs (FIM): 5 # of Steps: 8 Stairs Level Of Assist: 5 PT Plan Problem List Problem List: Activity Tolerance, Gait Treatment/Plan Treatment Plan: Continue Plan of Care Treatment Plan: Education, Functional Activity [place], Functional Strength, Gait , Safety, Therapeutic Exercise Treatment Duration: Jan 10, 2018 Frequency: 6 times per week Estimated Hrs Per Day: .5 hour per day Patient and/or Family Agrees t: Yes Safety Risks/Education Patient Education: Safety Issues Teaching Recipient: Patient Teaching Methods: Discussion Response to Teaching: Verbalize Understanding Discharge Recommendations Therapy D/C Recommendations: Home Independently Time/GCodes Time In: 930 Time Out: 954 Total Billed Treatment Time: 24 Total Billed Treatment 1 visit EVModC 24 min G Codes Necessary: CARLEE Smith PT Dec 26, 2017 10:31
[2017-12-26] MEDS: UMECLIDINIUM BROMIDE (INCRUSE ELLIPTA) 7'S IH SCH (10:45)
--- NOTE | 2017-12-26 10:54 | Progress Note-Hospitalist ---
Subjective HPI/CC On Admission Date Seen by Provider: Dec 26, 2017 Time Seen by Provider: 09:45 CC: Respiratory distress HPI: This is a 57-year-old white male who was just discharged from hospital in [facility] and was set to be admitted to inpatient rehabilitation of which he was upon arrival nursing staff contacted me regarding respiratory distress. Apparently he is just had a recent diagnosis of lung cancer of which Dr. Tirado has been involved and will be undergoing radiation treatment of which he's had two treatments already. He was diagnosed with 2 bouts of pneumonia in the past one month requiring rehospitalization and had just completed Levaquin 10 days prior to transferring to [facility]. 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 He is a previous smoker. He reports that his had leukemia 7 years ago and 2-1/2 years ago and he has been in [facility] since that time. Unclear the type of lung cancer he has been Dr. Jain will be consulted for radiation treatment here via [facility]. He was not discharged home on oxygen and was not discharged on BiPAP since he was being placed in a hospital facility in inpatient rehabilitation when he was transferred to [facility]. Subjective/Events-last exam Patient doing much better today Uses BiPAP at night Transferring to fourth floor Radiation treatment awaiting clinical stability Responding to pneumonia treatment IV steroids noted to have been changed to PO per Dr Garza Appreciate Dr. Garza consultation Review of Systems Pulmonary: Dyspnea, Cough Focused Exam Lactate Level 12/23/17 12:27: Lactic Acid Level 2.44*H 12/23/17 17:03: Lactic Acid Level 1.56 Objective Exam Vital Signs Vital Signs Date Time Temp Pulse Resp B/P (MAP) Pulse Ox O2 Delivery O2 Flow Rate FiO2 12/26/17 10:46 98 Nasal Cannula 3.00 12/26/17 10:00 78 18 12/26/17 09:00 113/77 (89) 12/26/17 08:00 25 12/26/17 03:32 96.3 Capillary Refill : Less Than 3 Seconds General Appearance: No Apparent Distress, WD/WN, Chronically ill Respiratory: Chest Non Tender, Lungs Clear, Normal Breath Sounds, No Accessory Muscle Use, No Respiratory Distress, Decreased Breath Sounds Cardiovascular: Regular Rate, Rhythm, No Edema, No Gallop, No JVD, No Murmur, Normal Peripheral Pulses Neurologic/Psychiatric: Alert, Oriented x3, No Motor/Sensory Deficits, Normal Mood/Affect Results/Procedures Lab Laboratory Tests 12/26/17 03:40 Patient resulted labs reviewed. Assessment/Plan Assessment and Plan Assess & Plan/Chief Complaint Assessment: Lung cancer non-small cell type Pneumonia severe and resistant type AECOPD Former smoker Plan: Appreciate Dr. Garza consultation Empiric antibiotics of Zosyn and vancomycin Dr. Jain for radiation treatment of lung cancer when patient can lie on radiation treatment table for 20 minutes Monitor labs closely BiPAP prn at night with Vapotherm PT evaluation Diagnosis/Problems Diagnosis/Problems (1) Acute respiratory failure with hypoxia Status: Acute Assessment & Plan: BiPAP use with oxygen and nebulizer treatments (2) Sepsis Status: Resolved Assessment & Plan: IV fluid per protocol Qualifiers: Sepsis type: sepsis due to unspecified organism Qualified Codes: A41.9 - Sepsis, unspecified organism (3) Pneumonia Status: Acute Assessment & Plan: Maintain Zosyn empiric antibiotic coverage and DC vancomycin Qualifiers: Pneumonia type: due to unspecified organism Laterality: left Lung location: lower lobe of lung Qualified Codes: J18.1 - Lobar pneumonia, unspecified organism (4) Lung cancer Status: Chronic Assessment & Plan: Obtained records from [facility] regarding specifics on lung cancer and it is non-small cell type Qualifiers: Laterality: left Lung location: unspecified part of lung Qualified Codes : C34.92 - Malignant neoplasm of unspecified part of left bronchus or lung (5) COPD (chronic obstructive pulmonary disease) Status: Acute Qualifiers: COPD type: unspecified COPD Qualified Codes: J44.9 - Chronic obstructive pulmonary disease, unspecified (6) Former smoker Status: Chronic (7) Leukocytosis Status: Acute Qualifiers: Leukocytosis type: leukemoid reaction Qualified Codes: D72.823 - Leukemoid reaction (8) Prophylactic measure Status: Acute Assessment & Plan: Lovenox for DVT Px Clinical Quality Measures DVT/VTE Risk/Contraindication: Risk Factor Score Per Nursin RFS Level Per Nursing on Admit: 4+=Very High ANTONIA FRIAS DO Dec 26, 2017 10:54
[2017-12-26] MEDS: ATORVASTATIN 80 MG (LIPITOR) TABLET PO SCH (21:05)
[2017-12-26] MEDS: ENOXAPARIN 40 MG/0.4 ML (LOVENOX) SYR SC SCH (21:06)
[2017-12-27] VITALS (27 sets, daily range): BP systolic 84–137; BP diastolic 52–99
[2017-12-27] MEDS: RT-ALBUTEROL/IPRATROPIUM 3 ML (DUONEB) VIAL INH SCH ×6 (02:01→22:01)
[2017-12-27] MEDS: PIPERACILLIN/TAZO 3.375 GM/D5W 100 ML IV SCH ×4 (02:10→09:06)
[2017-12-27] MEDS: LORazepam 0.5 MG (ATIVAN) TABLET PO PRN ×2 (03:17→09:05)
[2017-12-27] MEDS: MULTIVIT W/MINERALS TAB (THERAGRAN M) PO SCH (06:04)
[2017-12-27] MEDS: predniSONE 20 MG TAB PO SCH (06:04)
[2017-12-27 07:17] LABS: BASOPHILS % (AUTO) 0 % (0-10); EOSINOPHILS # (AUTO) 0.1 10^3/uL (0.0-0.3); EOSINOPHILS % (AUTO) 1 % (0-10); HEMATOCRIT 43 % (40-54); HEMOGLOBIN 13.8 G/DL (13.3-17.7); LYMPHOCYTES # (AUTO) 1.5 X 10^3 (1.0-4.0); LYMPHOCYTES % (AUTO) 8 % (12-44); MEAN CORPUSCULAR HEMOGLOBIN 28 PG (25-34); MEAN CORPUSCULAR HGB CONC 32 G/DL (32-36); MEAN CORPUSCULAR VOLUME 88 FL (80-99); MEAN PLATELET VOLUME 10.3 FL (7.4-10.4); MONOCYTES # (AUTO) 1.2 X 10^3 (0.0-1.0); MONOCYTES % (AUTO) 6 % (0-12); NEUTROPHILS # (AUTO) 16.6 X 10^3 (1.8-7.8); NEUTROPHILS % (AUTO) 85 % (42-75); PLATELET COUNT 248 10^3/uL (130-400); RED BLOOD COUNT 4.88 10^6/uL (4.35-5.85); WHITE BLOOD COUNT 19.4 10^3/uL (4.3-11.0)
[2017-12-27 07:38] LABS: BUN/CREATININE RATIO 28; CALCIUM 9.1 MG/DL (8.5-10.1); CARBON DIOXIDE 29 MMOL/L (21-32); CHLORIDE 103 MMOL/L (98-107); CREATININE SERUM 0.94 MG/DL (0.60-1.30); GFR ESTIMATED > 60; GLUCOSE 130 MG/DL (70-105); MAGNESIUM 1.9 MG/DL (1.8-2.4); PHOSPHORUS 3.1 MG/DL (2.3-4.7); POTASSIUM 4.1 MMOL/L (3.6-5.0); SODIUM 140 MMOL/L (135-145)
[2017-12-27] MEDS: RT-ADVAIR HFA 115/21 MCG PER PUFF IH SCH ×2 (07:38→20:23)
[2017-12-27] MEDS: buPROPion SR 150 MG (WELLBUTRIN SR) TAB PO SCH ×2 (09:04→20:24)
[2017-12-27] MEDS: ASPIRIN 325 MG (5 GR) TABLET PO SCH (09:04)
[2017-12-27] MEDS: MELOXICAM 7.5 MG (MOBIC) TABLET PO SCH (09:04)
[2017-12-27] MEDS: DOCUSATE SODIUM 100 MG (COLACE) CAP PO SCH ×2 (09:05→20:24)
[2017-12-27] MEDS: risperiDONE 0.25 MG (RisperDAL) TAB PO SCH ×2 (09:05→20:24)
[2017-12-27] MEDS: HYDROCHLOROTHIAZIDE 12.5 MG (HCTZ) CAP PO SCH (09:05)
[2017-12-27] MEDS: Naltrexone HCl 50 MG TABLET PO SCH (09:05)
[2017-12-27] MEDS: lisINopril 20 MG (PRINIVIL) TABLET PO SCH (09:05)
--- NOTE | 2017-12-27 09:08 | Pulmonary Progress Note ---
Subjective Time Seen by Provider: 09:09 Subjective/Events-last exam Pt is more SOB this AM and feels worse. Exam Exam Vital Signs Date Time Temp Pulse Resp B/P (MAP) Pulse Ox O2 Delivery O2 Flow Rate FiO2 12/27/17 08:00 96.7 112 22 131/81 (98) 90 NIV Bilevel 25.00 12/27/17 07:39 105 20 93 35.00 12/27/17 04:16 111 34 95 35.00 12/27/17 04:00 96.6 119 22 122/76 (91) 90 NIV Bilevel 25.00 12/27/17 02:02 98 20 91 25.00 12/27/17 00:34 102 20 95 25.00 12/27/17 00:00 97.2 107 20 118/74 (89) 95 NIV Bilevel 25.00 12/26/17 22:10 113 21 94 35.00 12/26/17 20:00 NIV Bilevel 25 12/26/17 19:35 97.5 100 20 108/64 (79) 95 Nasal Cannula 3.00 12/26/17 18:17 97 Nasal Cannula 3.00 12/26/17 15:25 98.4 82 20 134/80 (98) 91 Nasal Cannula 3.00 12/26/17 14:13 Nasal Cannula 3.00 12/26/17 12:00 NIV Bilevel 25 12/26/17 12:00 96.3 76 24 136/84 (101) 93 Nasal Cannula 3.00 12/26/17 11:00 97.6 12/26/17 10:46 98 Nasal Cannula 3.00 12/26/17 10:00 78 18 96 NIV Bilevel 25.00 I & O 12/27/17 07:00 Intake Total 400 ml Output Total 1500 ml Balance -1100 ml General Appearance: WD/WN, Anxious, Chronically ill, Moderate Distress HEENT: PERRL/EOMI, Normal ENT Inspection, Pharynx Normal Neck: Normal Inspection, Non Tender, Supple Respiratory: Chest Non Tender, Lungs Clear, Normal Breath Sounds, No Accessory Muscle Use, No Respiratory Distress, Decreased Breath Sounds Cardiovascular: Regular Rate, Rhythm, No Edema, No Gallop, No JVD, No Murmur, Normal Peripheral Pulses Capillary Refill: Less Than 3 Seconds Peripheral Pulses: 2+ Carotid (R), 2+ Carotid (L), 2+ Radial Pulses (R), 2+ Radial Pulses (L) Gastrointestinal: normal bowel sounds, non tender, soft Extremity: Normal Capillary Refill Neurologic/Psychiatric: Alert, Oriented x3, No Motor/Sensory Deficits, Normal Mood/Affect Skin: Normal Color, Warm/Dry Lymphatic: No Adenopathy Results Lab Laboratory Tests 12/26/17 03:40 12/27/17 07:08 Assessment/Plan Assessment/Plan Acute respiratory failure -BIPAP -- PT has been using BiPAP most of the day. -Unless pt is in respiratory distress will limit BiPAP from 8pm to 7AM -Increase activity -Hep lock IVF -prednisone 40mg daily -- change back to SOlumedrol recently dx with lung cancer NSCLC -- -check stat CTA of chest -Oncology following -radiation planned Pneumonia with severe sepsis - zosyn Anemia -monitor Debility/deconditioning Will transfer pt back to ICU with BIPAP. D/w [employer] and Dr. Batista. 60min spent with patient and medical staff regarding plan of care. Critical Care: Critically Ill Patient Time spent with patient (mins): 60 MARLO FORRESTER DO Dec 27, 2017 09:08
[2017-12-27] MEDS: ATENOLOL 50 MG (TENORMIN) TAB PO SCH (09:18)
--- NOTE | 2017-12-27 09:42 | Physical Therapy Progress Note ---
Therapy Progress Note Attempted PT visit at 0830. Pt reports he did not sleep well last night. Reports he needs to sleep for a few hours before he can do therapy. Will return later for PT visit. GEORGE RAMIRES PT Dec 27, 2017 09:42
--- NOTE | 2017-12-27 10:39 | Progress Note-Hospitalist ---
Subjective HPI/CC On Admission Date Seen by Provider: Dec 27, 2017 Time Seen by Provider: 10:30 CC: Respiratory distress HPI: This is a 57-year-old white male who was just discharged from hospital in [facility] and was set to be admitted to inpatient rehabilitation of which he was upon arrival nursing staff contacted me regarding respiratory distress. Apparently he is just had a recent diagnosis of lung cancer of which Dr. Tirado has been involved and will be undergoing radiation treatment of which he's had two treatments already. He was diagnosed with 2 bouts of pneumonia in the past one month requiring rehospitalization and had just completed Levaquin 10 days prior to transferring to [facility]. 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 He is a previous smoker. He reports that his had leukemia 7 years ago and 2-1/2 years ago and he has been in [facility] since that time. Unclear the type of lung cancer he has been Dr. Jain will be consulted for radiation treatment here [facility]. He was not discharged home on oxygen and was not discharged on BiPAP since he was being placed in a hospital facility in inpatient rehabilitation when he was transferred to [facility]. Subjective/Events-last exam Patient was not doing well Patient will be transferred up to the ICU Patient is not clinically stable enough to undergo radiation treatment to have any type of chance of shrinking the lung cancer that has extensive expansion into the left lung Patient overall has very poor prognosis Patient having a lot of difficulty having any type of improvement in his status It appears the palliative care nurse spoke with him and he would like to be on the ventilator for 30 days and if that is not successful then he would consider palliative care and hospice and extubation Review of Systems General: Fatigue, Malaise Pulmonary: Dyspnea, Cough Objective Exam Vital Signs Vital Signs Date Time Temp Pulse Resp B/P (MAP) Pulse Ox O2 Delivery O2 Flow Rate FiO2 12/27/17 10:50 85 16 92 35.00 12/27/17 08:00 96.7 131/81 (98) NIV Bilevel 12/26/17 20:00 25 Capillary Refill : Less Than 3 Seconds General Appearance: Chronically ill, Moderate Distress Respiratory: Lungs Clear, Normal Breath Sounds, Accessory Muscle Use, Decreased Breath Sounds, Respiratory Distress Neurologic/Psychiatric: Alert, Oriented x3, No Motor/Sensory Deficits, Normal Mood/Affect Results/Procedures Lab Laboratory Tests 12/27/17 07:08 Patient resulted labs reviewed. Assessment/Plan Assessment and Plan Assess & Plan/Chief Complaint Assessment: Severe acute respiratory failure recurrent type Lung cancer non-small cell type Pneumonia severe and resistant type AECOPD Former smoker Plan: Transfer to ICU Appreciate Dr. Garza consultation Empiric antibiotics of Zosyn and vancomycin Dr. Jain for radiation treatment of lung cancer when patient can lie on radiation treatment table for 20 minutes Monitor labs closely BiPAP prn at night with Vapotherm PT evaluation Very poor prognosis Diagnosis/Problems Diagnosis/Problems (1) Acute respiratory failure with hypoxia Status: Acute Assessment & Plan: BiPAP use with vapotherm oxygen and nebulizer treatments and now transferring to ICU now due to declined status (2) Sepsis Status: Resolved Assessment & Plan: IV fluid per protocol Qualifiers: Sepsis type: sepsis due to unspecified organism Qualified Codes: A41.9 - Sepsis, unspecified organism (3) Pneumonia Status: Acute Assessment & Plan: Maintain Zosyn empiric antibiotic coverage and DC vancomycin Qualifiers: Pneumonia type: due to unspecified organism Laterality: left Lung location: lower lobe of lung Qualified Codes: J18.1 - Lobar pneumonia, unspecified organism (4) Lung cancer Status: Chronic Assessment & Plan: Obtained records from [facility] regarding specifics on lung cancer and it is non-small cell type Qualifiers: Laterality: left Lung location: unspecified part of lung Qualified Codes : C34.92 - Malignant neoplasm of unspecified part of left bronchus or lung (5) COPD (chronic obstructive pulmonary disease) Status: Acute Qualifiers: COPD type: unspecified COPD Qualified Codes: J44.9 - Chronic obstructive pulmonary disease, unspecified (6) Former smoker Status: Chronic (7) Leukocytosis Status: Acute Qualifiers: Leukocytosis type: leukemoid reaction Qualified Codes: D72.823 - Leukemoid reaction (8) Prophylactic measure Status: Acute Assessment & Plan: Lovenox for DVT Px (9) Poor prognosis Status: Acute Clinical Quality Measures DVT/VTE Risk/Contraindication: Risk Factor Score Per Nursin RFS Level Per Nursing on Admit: 4+=Very High ANTONIA FRIAS DO Dec 27, 2017 10:39
[2017-12-27] MEDS ORDERED: FUROSEMIDE 40 MG/4 ML INJ (LASIX) IVP NR (10:45)
--- NOTE | 2017-12-27 10:58 | Physical Therapy Progress Note ---
Therapy Progress Note Pt to transfer to ICU. GEORGE RAMIRES PT Dec 27, 2017 10:58
[2017-12-27] MEDS ORDERED: PIPERACILLIN/TAZO3.375 GM/D5W 100 ML IV NR ×2 (11:00)
[2017-12-27 11:19] LABS: ABG BASE EXCESS 2.8 MMOL/L (-2.5-2.5); ABG OXYGEN SATURATION 94 % (94-100); ABG PCO2 36 MMHG (35-45); ABG PH 7.48 (7.37-7.43); ABG PO2 69 MMHG (79-93); ABG TCO2 27.3 MMOL/L (21.0-31.0)
[2017-12-27 11:20] LABS: ALLENS TEST YES-POS; INSPIRED O2 35%; PATIENT TEMP 98.4; VENTILATOR NO
[2017-12-27] MEDS ORDERED: RECEIVED CONTRAST (Hold Metformin) IV SCH (11:30)
[2017-12-27] MEDS ORDERED: IOHEXOL 350 MG/ML 150 ML (OMNIPAQUE 350) VIAL IV ONE (11:30)
[2017-12-27] MEDS ORDERED: NS 250 ML (IVPB) BAG IV ONE (11:30)
[2017-12-27] MEDS: CATHETER FLUSH 10 ML SYR IV PRN (12:07)
[2017-12-27] MEDS: methylPREDNISolone 40 MG/ML (Solu-MEDROL) VIAL IV SCH ×2 (12:29→17:07)
--- NOTE | 2017-12-27 13:04 | Diagnostic Imaging Report ---
PROCEDURE: CT angiography of the chest with contrast. TECHNIQUE: Multiple contiguous axial images were obtained through the chest after uneventful bolus administration of intravenous contrast. Reconstructed CTA MIP acquisitions were also performed. INDICATION: Respiratory distress and hypoxia. COMPARISON: No prior CT studies are available for comparison. FINDINGS: Bulky mediastinal lymphadenopathy is identified consistent with patient's known diagnosis of non-small cell lung carcinoma. A large mass in the prevascular space is seen measuring approximately 8.5 x 4.3 cm. Soft tissue mass posterior to the trachea and to the right of the esophagus is seen commencing at the level of the great vessels off the aortic arch extending inferiorly to just above the tasia. This measures 2.5 x 2.2 cm. There is subcarinal soft tissue mass measuring 4.9 x 4.4 cm. Soft tissue mass extends to the left hilum. There appears to be encasement of the left upper lobe bronchus and the left mainstem bronchus. There is some narrowing of the proximal aspect of the left lower lobe bronchus. There is significant consolidation in the left upper lobe consistent with postobstructive pneumonia/atelectasis. Right mainstem bronchus as well as right upper, right middle, and right lower lobe bronchi are patent. There is some consolidation in the left lower lobe as well. There are interstitial nodular densities in the left lower lobe, raising question of lymphangitic spread of neoplasm. A moderate left effusion is seen. No right-sided effusion or pericardial effusion is seen. Evaluation of the pulmonary arterial system does show filling defects within right middle lobe lobar and subsegmental branches. There are also filling defects in lingular and left lower lobe branches consistent with pulmonary emboli. Abnormal soft tissues in the supraclavicular regions bilaterally are seen suggestive of lymphadenopathy. Imaging below the diaphragm does show a large right adrenal mass measuring 6.1 x 3.7 cm. Left adrenal gland is unremarkable. There are enlarged nodes in the central retroperitoneum, aortocaval and left periaortic region. There is a low density in the left kidney, which is not entirely included on this study and is indeterminate. Bony structures show multiple age-indeterminate left lower posterior rib fractures. IMPRESSION: 1. Masses consistent with patient's primary lung neoplasm. Masses encase the left mainstem bronchus and left upper lobe bronchus creating left upper lobe consolidation and atelectasis. There is also consolidation and nodularity in the left lower lobe. Possibility of lymphangitic spread of neoplasm cannot be entirely excluded. There also appears to be supraclavicular lymphadenopathy consistent with metastatic disease. There are some prominent lymph nodes in the left axilla. There is a large right adrenal mass and central retroperitoneal lymphadenopathy consistent with metastatic disease. 2. Bilateral pulmonary arterial filling defects consistent with pulmonary emboli. Results were called and discussed with Dr. Seng Garza and Dr. Mireille Batista prior to this dictation. Dictated by: Dictated on workstation # [id number]
[2017-12-27] MEDS: ENOXAPARIN 100 MG/1 ML (LOVENOX) SYR SC SCH (13:05)
[2017-12-27] MEDS: UMECLIDINIUM BROMIDE (INCRUSE ELLIPTA) 7'S IH SCH (14:50)
[2017-12-27] MEDS: HALOPERIDOL 5 MG/ML (HALDOL) AMP IV PRN (15:32)
[2017-12-27] MEDS ORDERED: AUGMENTIN 875 MG TAB (AMOXICILLIN/CLAVULANATE) PO SCH (17:00)
[2017-12-27] MEDS: PIPERACILLIN/TAZOBACTAM 3.375 GM in D5W 100 ML IVPB 100 ML IV SCH (17:07)
[2017-12-27] MEDS ORDERED: LACTATED RINGERS 1,000 ML IV ONE (18:30)
[2017-12-27] MEDS: ATORVASTATIN 80 MG (LIPITOR) TABLET PO SCH (20:24)
[2017-12-28] VITALS (30 sets, daily range): BP systolic 90–131; BP diastolic 54–100
[2017-12-28] MEDS: methylPREDNISolone 40 MG/ML (Solu-MEDROL) VIAL IV SCH ×4 (00:07→18:32)
[2017-12-28] MEDS: PIPERACILLIN/TAZOBACTAM 3.375 GM in D5W 100 ML IVPB 100 ML IV SCH ×3 (00:08→16:38)
[2017-12-28] MEDS: ENOXAPARIN 100 MG/1 ML (LOVENOX) SYR SC SCH ×2 (00:08→11:46)
[2017-12-28] MEDS: RT-ALBUTEROL/IPRATROPIUM 3 ML (DUONEB) VIAL INH SCH ×6 (02:25→21:30)
[2017-12-28 03:55] LABS: BASOPHILS % (AUTO) 0 % (0-10); EOSINOPHILS % (AUTO) 0 % (0-10); HEMATOCRIT 35 % (40-54); HEMOGLOBIN 11.5 G/DL (13.3-17.7); LYMPHOCYTES % (AUTO) 6 % (12-44); MEAN CORPUSCULAR HEMOGLOBIN 29 PG (25-34); MEAN CORPUSCULAR HGB CONC 33 G/DL (32-36); MEAN CORPUSCULAR VOLUME 88 FL (80-99); MEAN PLATELET VOLUME 11.2 FL (7.4-10.4); MONOCYTES # (AUTO) 0.8 X 10^3 (0.0-1.0); MONOCYTES % (AUTO) 5 % (0-12); NEUTROPHILS # (AUTO) 15.2 X 10^3 (1.8-7.8); NEUTROPHILS % (AUTO) 89 % (42-75); PLATELET COUNT 191 10^3/uL (130-400); RED BLOOD COUNT 3.97 10^6/uL (4.35-5.85); RED CELL DISTRIBUTION WIDTH 15.6 % (10.0-14.5)
[2017-12-28 04:04] LABS: BUN/CREATININE RATIO 30; CALCIUM 8.6 MG/DL (8.5-10.1); CARBON DIOXIDE 25 MMOL/L (21-32); CHLORIDE 104 MMOL/L (98-107); CREATININE SERUM 0.73 MG/DL (0.60-1.30); GFR ESTIMATED > 60; GLUCOSE 118 MG/DL (70-105); PHOSPHORUS 3.6 MG/DL (2.3-4.7); POTASSIUM 3.9 MMOL/L (3.6-5.0); SODIUM 139 MMOL/L (135-145)
[2017-12-28 04:46] LABS: ABG BASE EXCESS 4.9 MMOL/L (-2.5-2.5); ABG OXYGEN SATURATION 97 % (94-100); ABG PCO2 37 MMHG (35-45); ABG PH 7.49 (7.37-7.43); ABG PO2 77 MMHG (79-93); ABG TCO2 29.7 MMOL/L (21.0-31.0)
[2017-12-28 04:47] LABS: ALLENS TEST YES-POS; INSPIRED O2 50%; PATIENT TEMP 96.7; VENTILATOR NO
[2017-12-28] MEDS: POTASSIUM CL 10MEQ/50ML IVPB 50 ML IV SCH (05:37)
[2017-12-28] MEDS: KCL 20 MEQ TAB (K-DUR) PO SCH (05:38)
[2017-12-28] MEDS: MAGNESIUM 1 GM/100 ML IVPB 100 ML IV SCH (05:38)
--- NOTE | 2017-12-28 05:58 | Pulmonary Progress Note ---
Subjective Time Seen by Provider: 05:58 Subjective/Events-last exam Pt currently on BiPAP with increased WOB. Exam Exam Vital Signs Date Time Temp Pulse Resp B/P (MAP) Pulse Ox O2 Delivery O2 Flow Rate FiO2 12/28/17 04:31 80 15 96 50.00 12/28/17 04:00 96.7 12/28/17 04:00 92 NIV Bilevel 50.00 12/28/17 02:25 71 16 96 50.00 12/28/17 02:00 81 14 98/54 (69) 97 Nasal Cannula 12/28/17 01:00 75 14 91/75 (80) 94 NIV Bilevel 50.00 12/28/17 01:00 100 12/28/17 00:12 96.4 72 14 98/69 (79) 95 NIV Bilevel 50.00 12/28/17 00:09 82 21 96 50.00 12/28/17 00:00 92 NIV Bilevel 50.00 12/28/17 00:00 89 27 109/66 (80) 98 Nasal Cannula 2.00 12/27/17 23:00 75 12 108/76 (87) 93 NIV Bilevel 50.00 12/27/17 22:31 75 15 101/52 (68) 93 NIV Bilevel 50.00 12/27/17 22:01 75 16 92 50.00 12/27/17 22:00 72 14 84/65 (71) 93 NIV Bilevel 50.00 12/27/17 21:15 76 12 91/71 (78) 92 NIV Bilevel 50.00 12/27/17 20:45 74 13 97/66 (76) 92 NIV Bilevel 50.00 12/27/17 20:26 81 28 137/99 (112) 92 NIV Bilevel 50.00 12/27/17 20:23 78 15 92 50.00 12/27/17 20:00 92 NIV Bilevel 50.00 12/27/17 19:30 81 17 119/83 (95) 92 NIV Bilevel 50.00 12/27/17 19:00 79 12/27/17 19:00 77 14 114/80 (91) 92 NIV Bilevel 50.00 12/27/17 18:19 79 19 84/60 (68) 96 NIV Bilevel 50.00 12/27/17 18:18 82 26 97 50.00 12/27/17 17:00 73 14 95/66 (76) 97 NIV Bilevel 50.00 12/27/17 16:59 92 NIV Bilevel 50 12/27/17 16:00 97.8 79 18 105/69 (81) 97 NIV Bilevel 50.00 12/27/17 15:00 79 23 120/88 (99) 94 NIV Bilevel 50.00 12/27/17 14:55 73 16 95 50.00 12/27/17 14:45 73 14 99/66 (77) 95 NIV Bilevel 50.00 12/27/17 14:30 73 14 90/69 (76) 94 NIV Bilevel 50.00 12/27/17 14:15 74 10 97/65 (76) 95 NIV Bilevel 50.00 12/27/17 14:00 87 29 111/72 (85) 89 NIV Bilevel 35.00 12/27/17 13:30 81 24 100/77 (85) 93 NIV Bilevel 35.00 12/27/17 13:15 73 16 102/68 (79) 93 NIV Bilevel 35.00 12/27/17 13:00 77 17 97/69 (78) 95 NIV Bilevel 35.00 12/27/17 12:45 77 16 91/63 (72) 93 NIV Bilevel 35.00 12/27/17 12:30 81 18 92/73 (79) 91 NIV Bilevel 35.00 12/27/17 12:11 84 12/27/17 12:00 97.0 85 27 112/72 (85) 93 NIV Bilevel 35.00 12/27/17 12:00 92 NIV Bilevel 35 12/27/17 10:50 85 16 92 35.00 12/27/17 08:55 High Flow N/C 10.00 12/27/17 08:00 96.7 112 22 131/81 (98) 90 NIV Bilevel 25.00 12/27/17 07:39 105 20 93 35.00 I & O 12/28/17 07:00 Intake Total 1600 ml Output Total 2200 ml Balance -600 ml PULEXAM Height: 5', 6.00" Weight: 205lbs 5.0oz, [id number] Method: ,31.3BMI General Appearance: Chronically ill, Moderate Distress HEENT: PERRL/EOMI, Normal ENT Inspection, Pharynx Normal Neck: Normal Inspection, Non Tender, Supple Respiratory: Lungs Clear, Normal Breath Sounds, Accessory Muscle Use, Decreased Breath Sounds, Respiratory Distress Cardiovascular: Regular Rate, Rhythm, No Edema, No Gallop, No JVD, No Murmur, Normal Peripheral Pulses Capillary Refill: Less Than 3 Seconds Peripheral Pulses: 2+ Carotid (R), 2+ Carotid (L), 2+ Radial Pulses (R), 2+ Radial Pulses (L) Gastrointestinal: normal bowel sounds, non tender, soft Extremity: Normal Capillary Refill Neurologic/Psychiatric: Alert, Oriented x3, No Motor/Sensory Deficits, Normal Mood/Affect Skin: Normal Color, Warm/Dry Lymphatic: No Adenopathy Results Lab Laboratory Tests 12/27/17 07:08 12/28/17 03:20 Assessment/Plan Assessment/Plan Acute respiratory failure -BIPAP -Increase activity -Hep lock IVF -Solumedrol 40 Q 6 recently dx with metastatic lung cancer NSCLC -Oncology following -radiation planned Pneumonia with severe sepsis - zosyn Anemia -monitor Debility/deconditioning I talked with patient extensively regarding his lung cancer and most recent CT scan. Per CT scan he has extensive metastatic lung cancer ant in his left lung. Pt's overall prognosis is very poor. I explained to him difference between DNR and Hospice care. Currently he is a Full Code. He is going to talk to his friend about DNR vs Hospice Care. I have also discussed plan of care with nursing staff. Advance Care discuss with: patient End of Life Care: Comfort Measures, Pallative Care, Hospice (Hospital), Hospice Care (Home) Advance Care Discussion: initiate discussion, clarifying prognosis, identified end-of-life goals, developed treatment plan Time spent on discussion(mins): 60 MARLO FORRESTER DO Dec 28, 2017 05:58
[2017-12-28] MEDS: RT-ADVAIR HFA 115/21 MCG PER PUFF IH SCH ×2 (06:55→21:30)
[2017-12-28] MEDS: UMECLIDINIUM BROMIDE (INCRUSE ELLIPTA) 7'S IH SCH (07:00)
--- NOTE | 2017-12-28 07:14 | Diagnostic Imaging Report ---
EXAMINATION: Chest radiograph, portable AP view. DATE: December 28, 2017 at 0326 hours. INDICATION: 57-year-old male, respiratory distress. History of lung cancer. COMPARISON: December 26, 2017. FINDINGS: Stable overall appearance of the cardiomediastinal silhouette. There is redemonstrated masslike opacification in the left upper lobe and left hilar region which is essentially unchanged. There is increasing alveolar consolidation in the left upper lobe since the comparison radiograph. There is persistent and grossly unchanged nonspecific left basilar airspace consolidation. There is no identified pneumothorax. There are streaky opacities in the right lung base which may reflect atelectasis and/or infiltrate which are essentially unchanged. There is a small left pleural effusion on comparison CT chest which is difficult to appreciate radiographically. IMPRESSION: 1. Redemonstrated masslike consolidation in the left upper lobe and left hilar region. 2. Interval increase in alveolar consolidation in the left upper lobe. 3. Persistent and grossly unchanged alveolar consolidation in the left lower lobe and streaky opacities in the right lung base. 4. Small left pleural effusion seen on recent CT chest difficult to appreciate radiographically. Dictated by: Dictated on workstation # [id number]
[2017-12-28] MEDS: buPROPion SR 150 MG (WELLBUTRIN SR) TAB PO SCH ×2 (08:16→20:42)
[2017-12-28] MEDS: risperiDONE 0.25 MG (RisperDAL) TAB PO SCH ×2 (08:16→20:43)
[2017-12-28] MEDS: MULTIVIT W/MINERALS TAB (THERAGRAN M) PO SCH (08:16)
[2017-12-28] MEDS: ASPIRIN 325 MG (5 GR) TABLET PO SCH (08:16)
[2017-12-28] MEDS: Naltrexone HCl 50 MG TABLET PO SCH (08:17)
[2017-12-28] MEDS: DOCUSATE SODIUM 100 MG (COLACE) CAP PO SCH ×2 (08:17→20:43)
[2017-12-28] MEDS: MELOXICAM 7.5 MG (MOBIC) TABLET PO SCH (08:17)
[2017-12-28] MEDS: ATENOLOL 50 MG (TENORMIN) TAB PO SCH (09:00)
--- NOTE | 2017-12-28 09:59 | Progress Note-Hospitalist ---
Subjective HPI/CC On Admission Date Seen by Provider: Dec 28, 2017 Time Seen by Provider: 08:45 CC: Respiratory distress HPI: This is a 57-year-old white male who was just discharged from hospital in [facility] and was set to be admitted to inpatient rehabilitation of which he was upon arrival nursing staff contacted me regarding respiratory distress. Apparently he is just had a recent diagnosis of lung cancer of which Dr. Tirado has been involved and will be undergoing radiation treatment of which he's had two treatments already. He was diagnosed with 2 bouts of pneumonia in the past one month requiring rehospitalization and had just completed Levaquin 10 days prior to transferring to [facility]. 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 He is a previous smoker. He reports that his had leukemia 7 years ago and 2-1/2 years ago and he has been in nursing home since that time. Unclear the type of lung cancer he has been Dr. Jain will be consulted for radiation treatment here [facility]. He was not discharged home on oxygen and was not discharged on BiPAP since he was being placed in a hospital facility in inpatient rehabilitation when he was transferred to [facility]. Subjective/Events-last exam Mr. Rasmussen was currently off BiPAP and initially did not do well on 10 L per nasal cannula. Switching to Vapotherm he currently denies shortness of breath at rest with oxygen saturations around 98 percent without significant tachypnea. He denies chest pain with mild nonproductive cough predominantly. Occasionally he's bringing up some clear sputum with no evidence for hemoptysis. He denies chills fever or abdominal pain and is feeling little hungry this morning. Objective Exam Vital Signs Vital Signs Date Time Temp Pulse Resp B/P (MAP) Pulse Ox O2 Delivery O2 Flow Rate FiO2 12/28/17 08:24 NIV Bilevel 50.00 12/28/17 08:15 98.2 99 20 125/80 (95) 94 12/28/17 07:10 55 Capillary Refill : Less Than 3 Seconds General Appearance: No Apparent Distress, Obese HEENT: Other (No evidence for facial edema) Neck: Lymphadenopathy (L) (Firm fixed left supraclavicular area) Respiratory: No Accessory Muscle Use, No Respiratory Distress, Decreased Breath Sounds (On the left few scattered rhonchi without wheezing on right) Cardiovascular: Regular Rate, Rhythm, No Edema, No Gallop, No JVD, No Murmur, Normal Peripheral Pulses Gastrointestinal: Normal Bowel Sounds, No Organomegaly, No Pulsatile Mass, Non Tender, Soft Extremity: Normal Range of Motion, Non Tender, No Calf Tenderness, Other Neurologic/Psychiatric: Alert, Oriented x3 Results/Procedures Lab Laboratory Tests 12/28/17 03:20 Patient resulted labs reviewed. Assessment/Plan Assessment and Plan Assess & Plan/Chief Complaint 1. Non-small cell lung cancer extensive pulmonary hilar and supraclavicular lymph node metastasis terminal prognosis. 2. Left upper lobe postobstructive pneumonia cultures negative to date consider discontinuing vancomycin and continuing Zosyn defer to Dr. Garza. 3. Hypertension patient is having episodes of low blood pressure considering terminal diagnosis will DC lisinopril and amlodipine with when necessary amlodipine for systolic pressures greater than 180 or diastolic pressures greater than 110 4. Respiratory distress somewhat improved secondary to number 1 and number 2. Critical Care Critical Care: Critically Ill Patient Clinical Quality Measures DVT/VTE Risk/Contraindication: Risk Factor Score Per Nursin RFS Level Per Nursing on Admit: 4+=Very High WARREN NGUYEN MD Dec 28, 2017 09:59
[2017-12-28] MEDS ORDERED: amLODIPine 5 MG (NORVASC) TAB PO PRN (10:00)
[2017-12-28] MEDS: CATHETER FLUSH 10 ML SYR IV PRN ×2 (11:46→13:07)
[2017-12-28] MEDS: HALOPERIDOL 5 MG/ML (HALDOL) AMP IV PRN ×2 (13:07→20:43)
[2017-12-28] MEDS: ATORVASTATIN 80 MG (LIPITOR) TABLET PO SCH (20:43)
[2017-12-29] VITALS (33 sets, daily range): BP systolic 83–127; BP diastolic 45–87
[2017-12-29] MEDS: methylPREDNISolone 40 MG/ML (Solu-MEDROL) VIAL IV SCH ×4 (00:50→17:41)
[2017-12-29] MEDS: ENOXAPARIN 100 MG/1 ML (LOVENOX) SYR SC SCH ×2 (00:51→11:19)
[2017-12-29] MEDS: PIPERACILLIN/TAZOBACTAM 3.375 GM in D5W 100 ML IVPB 100 ML IV SCH ×3 (00:51→17:41)
[2017-12-29] MEDS: RT-ALBUTEROL/IPRATROPIUM 3 ML (DUONEB) VIAL INH SCH ×6 (02:30→22:06)
[2017-12-29 05:23] LABS: BASOPHILS % (AUTO) 0 % (0-10); EOSINOPHILS % (AUTO) 0 % (0-10); HEMATOCRIT 34 % (40-54); HEMOGLOBIN 11.2 G/DL (13.3-17.7); LYMPHOCYTES # (AUTO) 0.8 X 10^3 (1.0-4.0); LYMPHOCYTES % (AUTO) 4 % (12-44); MEAN CORPUSCULAR HEMOGLOBIN 29 PG (25-34); MEAN CORPUSCULAR HGB CONC 33 G/DL (32-36); MEAN CORPUSCULAR VOLUME 89 FL (80-99); MEAN PLATELET VOLUME 10.5 FL (7.4-10.4); MONOCYTES # (AUTO) 0.9 X 10^3 (0.0-1.0); MONOCYTES % (AUTO) 5 % (0-12); NEUTROPHILS # (AUTO) 16.4 X 10^3 (1.8-7.8); NEUTROPHILS % (AUTO) 91 % (42-75); PLATELET COUNT 190 10^3/uL (130-400); RED BLOOD COUNT 3.82 10^6/uL (4.35-5.85); RED CELL DISTRIBUTION WIDTH 15.7 % (10.0-14.5)
[2017-12-29 05:43] LABS: BUN/CREATININE RATIO 28; CALCIUM 8.5 MG/DL (8.5-10.1); CARBON DIOXIDE 26 MMOL/L (21-32); CHLORIDE 106 MMOL/L (98-107); CREATININE SERUM 0.74 MG/DL (0.60-1.30); GFR ESTIMATED > 60; GLUCOSE 139 MG/DL (70-105); MAGNESIUM 1.9 MG/DL (1.8-2.4); PHOSPHORUS 2.8 MG/DL (2.3-4.7); POTASSIUM 4.2 MMOL/L (3.6-5.0); SODIUM 140 MMOL/L (135-145)
[2017-12-29] MEDS: POTASSIUM CL 10MEQ/50ML IVPB 50 ML IV SCH (05:46)
[2017-12-29] MEDS: MAGNESIUM 1 GM/100 ML IVPB 100 ML IV SCH (05:46)
[2017-12-29] MEDS: KCL 20 MEQ TAB (K-DUR) PO SCH (05:47)
--- NOTE | 2017-12-29 06:03 | Pulmonary Progress Note ---
Subjective Time Seen by Provider: 06:03 Subjective/Events-last exam Pt still requiring BiPAP through the night. Exam Exam Vital Signs Date Time Temp Pulse Resp B/P (MAP) Pulse Ox O2 Delivery O2 Flow Rate FiO2 12/29/17 05:00 90 13 96/64 (75) 94 NIV Bilevel 50.00 12/29/17 04:00 Vapotherm 50 12/29/17 04:00 96.8 12/29/17 04:00 88 13 101/72 (82) 95 NIV Bilevel 50.00 12/29/17 03:00 87 13 88/60 (69) 95 NIV Bilevel 50.00 12/29/17 02:30 84 16 93 50.00 12/29/17 02:00 83 10 94/68 (77) 94 NIV Bilevel 50.00 12/29/17 01:00 85 10 101/70 (80) 95 NIV Bilevel 50.00 12/29/17 01:00 87 12/29/17 00:15 86 16 94 50.00 12/29/17 00:00 Vapotherm 50 12/29/17 00:00 92 12 91/55 (67) 95 NIV Bilevel 50.00 12/28/17 23:00 89 12 92/66 (75) 95 NIV Bilevel 50.00 12/28/17 22:00 84 12 91/60 (70) 95 NIV Bilevel 50.00 12/28/17 21:30 85 16 95 50.00 12/28/17 21:00 84 14 99/61 (74) 95 NIV Bilevel 50.00 12/28/17 20:15 96 16 97 50.00 12/28/17 20:00 97.6 90 13 99/69 (79) 96 NIV Bilevel 50.00 12/28/17 20:00 Vapotherm 50 12/28/17 19:00 95 15 99/69 (79) 96 NIV Bilevel 50.00 12/28/17 19:00 95 12/28/17 18:28 105 20 97 50.00 12/28/17 18:19 NIV Bilevel 50.00 12/28/17 18:00 112 16 95/68 (77) 95 Vapotherm 65.00 25.00 12/28/17 17:00 98 20 131/80 (97) 93 Vapotherm 65.00 25.00 12/28/17 16:37 98.4 Vapotherm 65.00 25.00 12/28/17 16:30 Vapotherm 25.00 65 12/28/17 16:00 98 20 129/77 (94) 94 Vapotherm 65.00 25.00 12/28/17 15:00 86 28 94/65 (75) 97 NIV Bilevel 50.00 12/28/17 14:33 NIV Bilevel 50.00 12/28/17 14:32 90 16 97 50.00 12/28/17 14:00 98 19 116/72 (87) 95 Vapotherm 65.00 25.00 12/28/17 13:00 111 32 112/97 (102) 91 Vapotherm 65.00 25.00 12/28/17 13:00 108 12/28/17 12:01 98.6 Vapotherm 65.00 25.00 12/28/17 12:00 Vapotherm 25.00 65 12/28/17 12:00 112 22 113/73 (86) 92 Vapotherm 65.00 25.00 12/28/17 11:00 111 21 114/75 (88) 92 Vapotherm 65.00 25.00 12/28/17 10:24 Vapotherm 65.00 25.00 12/28/17 10:19 95 Vapotherm 25.00 65 12/28/17 10:00 91 17 103/81 (88) 97 NIV Bilevel 50.00 12/28/17 09:00 90 15 99/69 (79) 97 NIV Bilevel 50.00 12/28/17 08:24 NIV Bilevel 50.00 12/28/17 08:15 Vapotherm 25.00 65 12/28/17 08:15 98.2 99 20 125/80 (95) 94 Vapotherm 65.00 25.00 12/28/17 08:00 111 25 127/100 (109) 90 NIV Bilevel 50.00 12/28/17 07:21 91 12/28/17 07:10 87 Vapotherm 17.00 55 12/28/17 07:10 99 95 65 12/28/17 07:00 87 Vapotherm 8.00 50 12/28/17 07:00 97 20 110/83 (92) 90 NIV Bilevel 50.00 12/28/17 06:55 93 Vapotherm 8.00 50 12/28/17 06:39 92 18 98 50.00 I & O 12/29/17 07:00 Intake Total 3230 ml Output Total 1200 ml Balance 2030 ml PULEXAM Height: 5', 6.00" Weight: 204lbs 3.0oz, [id number] Method: ,31.3BMI General Appearance: No Apparent Distress, Obese HEENT: Other (No evidence for facial edema) Neck: Lymphadenopathy (L) (Firm fixed left supraclavicular area) Respiratory: No Accessory Muscle Use, No Respiratory Distress, Decreased Breath Sounds (On the left few scattered rhonchi without wheezing on right) Cardiovascular: Regular Rate, Rhythm, No Edema, No Gallop, No JVD, No Murmur, Normal Peripheral Pulses Capillary Refill: Less Than 3 Seconds Peripheral Pulses: 2+ Carotid (R), 2+ Carotid (L), 2+ Radial Pulses (R), 2+ Radial Pulses (L) Gastrointestinal: normal bowel sounds, non tender, soft Extremity: Normal Range of Motion, Non Tender, No Calf Tenderness, Other Neurologic/Psychiatric: Alert, Oriented x3 Skin: Normal Color, Warm/Dry Lymphatic: No Adenopathy Results Lab Laboratory Tests 12/27/17 07:08 12/28/17 03:20 12/29/17 05:12 Assessment/Plan Assessment/Plan Acute respiratory failure -BIPAP -Increase activity -Hep lock IVF -Solumedrol 40 Q 6 recently dx with metastatic lung cancer NSCLC -Oncology following -radiation planned Pneumonia with severe sepsis - zosyn Anemia -monitor Debility/deconditioning Patient has decided to go home with hospice and would like to be discharged tomorrow. I have already touched base with [facility] and they are preparing for patients discharge. Critical Care: Critically Ill Patient MAROL FORRESTER DO Dec 29, 2017 06:03
[2017-12-29] MEDS: buPROPion SR 150 MG (WELLBUTRIN SR) TAB PO SCH ×2 (08:34→20:02)
[2017-12-29] MEDS: MULTIVIT W/MINERALS TAB (THERAGRAN M) PO SCH (08:34)
[2017-12-29] MEDS: risperiDONE 0.25 MG (RisperDAL) TAB PO SCH ×2 (08:35→20:02)
[2017-12-29] MEDS: RT-ADVAIR HFA 115/21 MCG PER PUFF IH SCH ×2 (08:35→20:20)
[2017-12-29] MEDS: DOCUSATE SODIUM 100 MG (COLACE) CAP PO SCH ×2 (08:35→20:02)
[2017-12-29] MEDS: MELOXICAM 7.5 MG (MOBIC) TABLET PO SCH (08:35)
[2017-12-29] MEDS: ASPIRIN 325 MG (5 GR) TABLET PO SCH (08:35)
[2017-12-29] MEDS: UMECLIDINIUM BROMIDE (INCRUSE ELLIPTA) 7'S IH SCH (08:36)
[2017-12-29] MEDS: ATENOLOL 50 MG (TENORMIN) TAB PO SCH (08:36)
[2017-12-29] MEDS: Naltrexone HCl 50 MG TABLET PO SCH (08:36)
--- NOTE | 2017-12-29 09:32 | Diagnostic Imaging Report ---
EXAM: Portable erect AP chest at 3:17 p.m. INDICATION: Respiratory stress The prior exam of 12/28/2017 noted near-complete opacification of the left upper lung and left midlung by an abnormal parenchymal alveolar/interstitial infiltrate. There was also a suggestion of a mass in this area. Those findings are again evident on this exam. The left lung base remains partially aerated. The interstitial infiltrates involving the right lower lobe seen previously are somewhat less conspicuous. The right upper lung is clear. The heart is stable. The mediastinum is difficult to assess due to the obscuration of the left lung. The osseous structures are intact. IMPRESSION: There is persistent near-complete opacification of the left upper lung and left midlung. When compared to the prior exam, there has been no significant change. A followup study would be recommended for continued evaluation. Dictated by: Dictated on workstation # [id number]
--- NOTE | 2017-12-29 11:46 | Progress Note-Hospitalist ---
Subjective HPI/CC On Admission Date Seen by Provider: Dec 29, 2017 Time Seen by Provider: 09:00 CC: Respiratory distress HPI: This is a 57-year-old white male who was just discharged from hospital in [facility] and was set to be admitted to inpatient rehabilitation of which he was upon arrival nursing staff contacted me regarding respiratory distress. Apparently he is just had a recent diagnosis of lung cancer of which Dr. Tirado has been involved and will be undergoing radiation treatment of which he's had two treatments already. He was diagnosed with 2 bouts of pneumonia in the past one month requiring rehospitalization and had just completed Levaquin 10 days prior to transferring to [facility]. 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 He is a previous smoker. He reports that his had leukemia 7 years ago and 2-1/2 years ago and he has been in [facility] since that time. Unclear the type of lung cancer he has been Dr. Jain will be consulted for radiation treatment here [facility]. He was not discharged home on oxygen and was not discharged on BiPAP since he was being placed in a hospital facility in inpatient rehabilitation when he was transferred to [facility]. Subjective/Events-last exam Patient denies shortness of breath at rest and also denies pain. He did require Haldol for anxiety which she states helped he was able to rest and voices no complaints this morning. Objective Exam Vital Signs Vital Signs Date Time Temp Pulse Resp B/P (MAP) Pulse Ox O2 Delivery O2 Flow Rate FiO2 12/29/17 11:29 98.2 92 Vapotherm 65.00 25.00 12/29/17 11:00 75 14 109/77 (88) 12/29/17 10:15 65 Capillary Refill : Less Than 3 Seconds General Appearance: No Apparent Distress, Anxious Respiratory: Chest Non Tender, No Accessory Muscle Use, No Respiratory Distress , Other (Diminished breath sounds on the left with a few scattered rhonchi no wheezing appreciated) Cardiovascular: Regular Rate, Rhythm, No Edema, No Gallop, No JVD, No Murmur, Normal Peripheral Pulses Results/Procedures Lab Laboratory Tests 12/29/17 05:12 Patient resulted labs reviewed. Assessment/Plan Assessment and Plan Assess & Plan/Chief Complaint 1. Non-small cell lung cancer extensive pulmonary hilar and supraclavicular lymph node metastasis terminal prognosis. Patient has opted for hospice with likely discharge tomorrow. End-of-life expectations discussed with the patient with expectations that oral medication should be adequate for any shortness of breath or anxiety symptoms. At this point pain has not been a factor in his care management. 2. Left upper lobe postobstructive pneumonia cultures negative to date.. 3. Hypertension patient is having episodes of low blood pressure considering terminal diagnosis will DC lisinopril and amlodipine with when necessary amlodipine for systolic pressures greater than 180 or diastolic pressures greater than 110 4. Respiratory distress somewhat improved secondary to number 1 and number 2. Critical Care Critical Care: Critically Ill Patient Clinical Quality Measures DVT/VTE Risk/Contraindication: Risk Factor Score Per Nursin RFS Level Per Nursing on Admit: 4+=Very High WARREN NGUYEN MD Dec 29, 2017 11:46
[2017-12-29] MEDS: HALOPERIDOL 5 MG/ML (HALDOL) AMP IV PRN ×2 (13:34→20:06)
[2017-12-29] MEDS: ATORVASTATIN 80 MG (LIPITOR) TABLET PO SCH (20:02)
[2017-12-30] VITALS (21 sets, daily range): BP systolic 97–140; BP diastolic 71–98
[2017-12-30] MEDS: ENOXAPARIN 100 MG/1 ML (LOVENOX) SYR SC SCH ×2 (00:41→13:42)
[2017-12-30] MEDS: methylPREDNISolone 40 MG/ML (Solu-MEDROL) VIAL IV SCH ×4 (00:41→17:37)
[2017-12-30] MEDS: PIPERACILLIN/TAZOBACTAM 3.375 GM in D5W 100 ML IVPB 100 ML IV SCH ×3 (01:52→17:36)
[2017-12-30] MEDS: RT-ALBUTEROL/IPRATROPIUM 3 ML (DUONEB) VIAL INH SCH ×4 (02:37→14:12)
[2017-12-30 03:51] LABS: BASOPHILS % (AUTO) 0 % (0-10); EOSINOPHILS % (AUTO) 0 % (0-10); HEMATOCRIT 36 % (40-54); HEMOGLOBIN 11.4 G/DL (13.3-17.7); LYMPHOCYTES # (AUTO) 0.8 X 10^3 (1.0-4.0); LYMPHOCYTES % (AUTO) 4 % (12-44); MEAN CORPUSCULAR HEMOGLOBIN 29 PG (25-34); MEAN CORPUSCULAR HGB CONC 32 G/DL (32-36); MEAN CORPUSCULAR VOLUME 90 FL (80-99); MEAN PLATELET VOLUME 10.9 FL (7.4-10.4); MONOCYTES # (AUTO) 1.1 X 10^3 (0.0-1.0); MONOCYTES % (AUTO) 6 % (0-12); NEUTROPHILS # (AUTO) 15.6 X 10^3 (1.8-7.8); NEUTROPHILS % (AUTO) 90 % (42-75); PLATELET COUNT 201 10^3/uL (130-400); RED BLOOD COUNT 3.95 10^6/uL (4.35-5.85); RED CELL DISTRIBUTION WIDTH 15.8 % (10.0-14.5); WHITE BLOOD COUNT 17.5 10^3/uL (4.3-11.0)
[2017-12-30 04:05] LABS: BUN/CREATININE RATIO 28; CALCIUM 8.6 MG/DL (8.5-10.1); CARBON DIOXIDE 26 MMOL/L (21-32); CHLORIDE 107 MMOL/L (98-107); CREATININE SERUM 0.74 MG/DL (0.60-1.30); GFR ESTIMATED > 60; GLUCOSE 123 MG/DL (70-105); PHOSPHORUS 2.9 MG/DL (2.3-4.7); POTASSIUM 4.4 MMOL/L (3.6-5.0); SODIUM 141 MMOL/L (135-145)
[2017-12-30 04:15] LABS: ANISOCYTOSIS SLIGHT; BAND NEUTROPHILS 2 %; LYMPHOCYTES % (MANUAL) 1 %; MONOCYTES % (MANUAL) 5 %; NEUTROPHILS % (MANUAL) 92 %; POIKILOCYTOSIS SLIGHT; SPHEROCYTES SLIGHT
[2017-12-30] MEDS: KCL 20 MEQ TAB (K-DUR) PO SCH (04:24)
[2017-12-30] MEDS: POTASSIUM CL 10MEQ/50ML IVPB 50 ML IV SCH (04:24)
[2017-12-30] MEDS: MAGNESIUM 1 GM/100 ML IVPB 100 ML IV SCH (04:24)
--- NOTE | 2017-12-30 05:50 | Pulmonary Progress Note ---
Subjective Time Seen by Provider: 06:49 Subjective/Events-last exam Pt is still using BIPAP all night and periodically throughout the day. There is a concern from staffing patient will not have enough assistance at home. Pt states his friend will be there to help him. He would like to have a BiPAP for home use upon discharge. Exam Exam Vital Signs Date Time Temp Pulse Resp B/P (MAP) Pulse Ox O2 Delivery O2 Flow Rate FiO2 12/30/17 04:23 77 17 95 50.00 12/30/17 04:00 80 13 112/77 (89) 93 NIV Bilevel 50.00 12/30/17 04:00 NIV Bilevel 50 12/30/17 03:00 78 12 104/74 (84) 93 NIV Bilevel 50.00 12/30/17 02:37 75 16 94 50.00 12/30/17 02:00 74 12 106/72 (83) 93 NIV Bilevel 50.00 12/30/17 01:08 76 12/30/17 01:00 78 12 113/75 (88) 94 NIV Bilevel 50.00 12/30/17 00:23 76 17 93 50.00 12/30/17 00:00 76 10 103/74 (84) 95 NIV Bilevel 50.00 12/30/17 00:00 NIV Bilevel 50 12/29/17 23:00 87 23 127/77 (94) 91 NIV Bilevel 50.00 12/29/17 22:06 75 17 94 50.00 12/29/17 22:00 80 21 113/68 (83) 95 NIV Bilevel 50.00 12/29/17 21:00 85 19 94/48 (63) 96 NIV Bilevel 50.00 12/29/17 20:03 77 15 95 50.00 12/29/17 20:00 NIV Bilevel 50 12/29/17 20:00 84 20 114/66 (82) 96 NIV Bilevel 50.00 12/29/17 19:37 97.9 75 12 104/71 (82) 94 NIV Bilevel 50.00 12/29/17 19:06 75 12/29/17 19:00 78 21 100/45 (63) 100 NIV Bilevel 50.00 12/29/17 18:10 NIV Bilevel 50.00 12/29/17 18:07 79 20 96 50.00 12/29/17 18:00 78 16 119/80 (93) 95 Vapotherm 65.00 25.00 12/29/17 17:00 81 34 109/83 (92) 96 Vapotherm 65.00 25.00 12/29/17 16:00 79 127/86 (100) 94 Vapotherm 65.00 25.00 12/29/17 15:36 95 Vapotherm 25.00 65 12/29/17 15:26 Vapotherm 25.00 65 12/29/17 15:26 Vapotherm 65.00 25.00 12/29/17 15:22 98.0 84 16 95 NIV Bilevel 50.00 12/29/17 15:00 76 13 92/63 (73) 95 NIV Bilevel 50.00 12/29/17 14:00 83 18 108/70 (83) 96 NIV Bilevel 50.00 12/29/17 13:35 NIV Bilevel 50.00 12/29/17 13:30 86 19 96 50.00 12/29/17 13:00 66 28 123/62 (82) 92 Vapotherm 65.00 25.00 12/29/17 13:00 66 12/29/17 12:21 Vapotherm 25.00 65 12/29/17 12:00 78 28 111/76 (88) 93 Vapotherm 65.00 25.00 12/29/17 11:29 98.2 92 Vapotherm 65.00 25.00 12/29/17 11:00 75 14 109/77 (88) 96 NIV Bilevel 50.00 12/29/17 10:15 95 Vapotherm 25.00 65 12/29/17 10:00 77 14 112/77 (89) 95 NIV Bilevel 50.00 12/29/17 09:00 98 17 112/81 (91) 93 NIV Bilevel 50.00 12/29/17 08:42 Vapotherm 25.00 65 12/29/17 08:36 93 Vapotherm 25.00 65 12/29/17 08:30 96.5 104 20 120/79 (93) 92 Vapotherm 25.00 65.00 12/29/17 08:27 93 Vapotherm 25.00 65 12/29/17 08:00 90 8 116/79 (91) 96 NIV Bilevel 50.00 12/29/17 07:00 90 13 106/87 (93) 96 NIV Bilevel 50.00 12/29/17 07:00 90 12/29/17 06:19 86 20 97 50.00 12/29/17 06:00 86 12 104/73 (83) 95 NIV Bilevel 50.00 I & O 12/30/17 07:00 Intake Total 800 ml Output Total 1250 ml Balance -450 ml PULEXAM Height: 5', 6.00" Weight: 204lbs 3.0oz, [id number] Method: ,31.3BMI General Appearance: No Apparent Distress, Anxious HEENT: Other (No evidence for facial edema) Neck: Lymphadenopathy (L) (Firm fixed left supraclavicular area) Respiratory: Chest Non Tender, No Accessory Muscle Use, No Respiratory Distress , Other (Diminished breath sounds on the left with a few scattered rhonchi no wheezing appreciated) Cardiovascular: Regular Rate, Rhythm, No Edema, No Gallop, No JVD, No Murmur, Normal Peripheral Pulses Capillary Refill: Less Than 3 Seconds Peripheral Pulses: 2+ Carotid (R), 2+ Carotid (L), 2+ Radial Pulses (R), 2+ Radial Pulses (L) Gastrointestinal: normal bowel sounds, non tender, soft Extremity: Normal Range of Motion, Non Tender, No Calf Tenderness, Other Neurologic/Psychiatric: Alert, Oriented x3 Skin: Normal Color, Warm/Dry Lymphatic: No Adenopathy Results Lab Laboratory Tests 12/29/17 05:12 12/30/17 03:15 Assessment/Plan Assessment/Plan Acute respiratory failure -BIPAP -Increase activity -Hep lock IVF -Solumedrol 40 Q 6 -- change to prednisone recently dx with metastatic lung cancer NSCLC -Oncology following -radiation planned Pneumonia with severe sepsis - zosyn -- change to Augmentin Anemia -monitor Debility/deconditioning PT wants to go home with hospice today. IT is unclear if patient is going to have enough help at home. He may need ECF vs assisted living placement with hospice. SW is consulted. I have already discussed with [facility] and they are working on arrangements currently. Will discus with hospice again today regarding BiPAP, oxygen and also the question if patient will have enough home assistance. 60min spent with patient and medical staff to arrange set up and discharge home with hospice. Critical Care: Critically Ill Patient Advance Care discuss with: patient End of Life Care: Comfort Measures, Pallative Care, Hospice (Hospital), Hospice Care (Home) Advance Care Discussion: identified end-of-life goals, developed treatment plan Time spent on discussion(mins): 60 MARLO FORRESTER DO Dec 30, 2017 05:50
--- NOTE | 2017-12-30 07:48 | Discharge Summary-Hospitalist ---
Diagnosis/Chief Complaint Date of Admission Dec 22, 2017 at 7:08 pm Date of Discharge Admission Diagnosis Pneumonia Lung cancer COPD Sepsis Discharge Diagnosis (1) Acute respiratory failure with hypoxia Status: Acute Assessment & Plan: BiPAP use with vapotherm oxygen and nebulizer treatments and now transferring to ICU now due to declined status (2) Sepsis Status: Resolved Assessment & Plan: IV fluid per protocol (3) Pneumonia Status: Acute Assessment & Plan: Maintain Zosyn empiric antibiotic coverage and DC vancomycin (4) Lung cancer Status: Chronic Assessment & Plan: Obtained records from [facility] regarding specifics on lung cancer and it is non-small cell type (5) COPD (chronic obstructive pulmonary disease) Status: Acute (6) Former smoker Status: Chronic (7) Leukocytosis Status: Acute (8) Prophylactic measure Status: Acute Assessment & Plan: Lovenox for DVT Px (9) Poor prognosis Status: Acute Discharge Summary Procedures/Consulations Dr Kris Urbina Discharge Physical Exam Allergies: Coded Allergies: codeine (Verified Allergy, Unknown, 12/22/17) Vitals & I&Os Vital Signs Date Time Temp Pulse Resp B/P (MAP) Pulse Ox O2 Delivery O2 Flow Rate FiO2 12/30/17 14:16 High Flow N/C 8.00 12/30/17 14:14 93 12/30/17 14:00 74 16 122/86 (98) 12/30/17 12:00 98.0 12/30/17 04:00 50 General Appearance: Alert, Oriented X3 Respiratory: Clear to Auscultation Cardiovascular: Regular Rate Psych/Mental Status: Mental Status NL, Mood NL Hospital Course Pt was admitted to ICU following admission to IRU for respiratory failure. He was treated with antibiotics and improved and was transferred to the 4th floor but again developed acute respiratory failure and was transferred back to the ICU. He was then found to have bilateral PEs on CTA chest and treated with Lovenox for anticoagulation. Ultimately he elected to discharge home with [facility] for his metastatic lung cancer. He was requiring 9lpm HFNC at time of discharge which could be accommodated by [facility]. He was discharged on Eliquis for his anticoagulation. Labs (last 24 hrs) Laboratory Tests 12/30/17 03:15: White Blood Count 17.5H, Red Blood Count 3.95L, Hemoglobin 11.4L, Hematocrit 36L , Mean Corpuscular Volume 90, Mean Corpuscular Hemoglobin 29, Mean Corpuscular Hemoglobin Concent 32, Red Cell Distribution Width 15.8H, Platelet Count 201, Mean Platelet Volume 10.9H, Neutrophils (%) (Auto) 90H, Lymphocytes (%) (Auto) 4L, Monocytes (%) (Auto) 6, Eosinophils (%) (Auto) 0, Basophils (%) (Auto) 0, Neutrophils # (Auto) 15.6H, Lymphocytes # (Auto) 0.8L, Monocytes # (Auto) 1.1H, Eosinophils # (Auto) 0.0, Basophils # (Auto) 0.0, Neutrophils % (Manual) 92, Lymphocytes % (Manual) 1, Monocytes % (Manual) 5, Band Neutrophils 2, Poikilocytosis SLIGHT, Anisocytosis SLIGHT, Spherocytes SLIGHT, Sodium Level 141 , Potassium Level 4.4, Chloride Level 107, Carbon Dioxide Level 26, Anion Gap 8 , Blood Urea Nitrogen 21H, Creatinine 0.74, Estimat Glomerular Filtration Rate > 60, BUN/Creatinine Ratio 28, Glucose Level 123H, Calcium Level 8.6, Phosphorus Level 2.9, Magnesium Level 2.0 Microbiology 12/22/17 Blood Culture - Final, Complete No growth 12/23/17 MRSA Screen - Final, Complete MRSA not isolated Patient resulted labs reviewed. Pending Labs Discussion & Recommendations Discharge Planning: >30 minutes discharge planning Discharge Home Medications: Active Scripts Active Eliquis (Apixaban) 5 Mg Tablet 5 Mg PO BID 30 Days TAKE 2 TABLETS BID X 7 DAYS, THEN 1 TABLET BID Morphine Sulfate Concentrate 20mg/ml (Morphine Sulfate) 100 Mg/5 Ml Solution 5 Mg PO Q2H PRN Meloxicam 15 Mg Tablet 15 Mg PO DAILY Lisinopril-Hctz 20-12.5 mg Tab (Lisinopril/Hydrochlorothiazide) 1 Each Tablet 1 Tab PO DAILY Incruse Ellipta (Umeclidinium Bells) 62.5 Mcg Blst.w.dev 62.5 Mcg IH DAILY Citalopram HBr (Citalopram Hydrobromide) 20 Mg Tablet 20 Mg PO DAILY Centrum Silver Tablet (Multivit-Min/FA/Lycopene/Lut) 1 Each Tablet 1 Each PO DAILY Bupropion HCl Sr (Bupropion HCl) 150 Mg Tablet.er 150 Mg PO BID Atorvastatin Calcium 80 Mg Tablet 80 Mg PO HS Atenolol 50 Mg Tablet 50 Mg PO DAILY Aspirin 325 Mg Tablet 325 Mg PO DAILY Reported Xopenex Hfa (Levalbuterol Tartrate) 15 Gm Hfa.aer.ad 15 Gm IH DAILY Newton 5-325 Tablet (Hydrocodone/Acetaminophen) 1 Each Tablet 1 Each PO DAILY PRN Advair 250-50 Diskus (Fluticasone/Salmeterol) 1 Each Blst.w.dev 1 Each IH BID Naltrexone HCl 50 Mg Tablet 50 Mg PO DAILY Instructions to patient/family Please see electronic discharge instructions given to patient. Clinical Quality Measures End of Life/Advance Care Plan: Advance Care discuss with: patient End of Life Care: Hospice Care (Home) DVT/VTE Risk/Contraindication: Risk Factor Score Per Nursin RFS Level Per Nursing on Admit: 4+=Very High Copy Copies To 1: DARIO VICTOR MD Problem Qualifiers (1) Sepsis: Sepsis type: sepsis due to unspecified organism Qualified Codes: A41.9 - Sepsis, unspecified organism (2) Pneumonia: Pneumonia type: due to unspecified organism Laterality: left Lung location: lower lobe of lung Qualified Codes: J18.1 - Lobar pneumonia, unspecified organism (3) Lung cancer: Laterality: left Lung location: unspecified part of lung Qualified Codes: C34.92 - Malignant neoplasm of unspecified part of left bronchus or lung (4) COPD (chronic obstructive pulmonary disease): COPD type: unspecified COPD Qualified Codes: J44.9 - Chronic obstructive pulmonary disease, unspecified (5) Leukocytosis: Leukocytosis type: leukemoid reaction Qualified Codes: D72.823 - Leukemoid reaction RELL BONILLA MD Dec 30, 2017 07:48
[2017-12-30] MEDS ORDERED: APIX5TAB PO (07:56)
[2017-12-30] MEDS ORDERED: MORP100S3 PO (07:56)
[2017-12-30] MEDS: MULTIVIT W/MINERALS TAB (THERAGRAN M) PO SCH (09:30)
[2017-12-30] MEDS: MELOXICAM 7.5 MG (MOBIC) TABLET PO SCH (09:30)
[2017-12-30] MEDS: DOCUSATE SODIUM 100 MG (COLACE) CAP PO SCH (09:30)
[2017-12-30] MEDS: buPROPion SR 150 MG (WELLBUTRIN SR) TAB PO SCH (09:30)
[2017-12-30] MEDS: ATENOLOL 50 MG (TENORMIN) TAB PO SCH (09:30)
[2017-12-30] MEDS: ASPIRIN 325 MG (5 GR) TABLET PO SCH (09:30)
[2017-12-30] MEDS: risperiDONE 0.25 MG (RisperDAL) TAB PO SCH (09:30)
[2017-12-30] MEDS: Naltrexone HCl 50 MG TABLET PO SCH (09:31)
--- NOTE | 2017-12-30 09:39 | Diagnostic Imaging Report ---
CLINICAL INDICATION: Patient with respiratory distress and history of lung cancer. EXAM: Portable chest x-ray, upright view. COMPARISON: Portable chest x-ray, upright view, dated 12/29/2017. FINDINGS: There is stable groundglass opacification and patchy consolidation involving the left lung with minimal aeration in the lateral left lung base region. There are emphysematous changes involving the right upper lung field with suspected mild atelectasis or scarring in the right lung base. The pulmonary vasculature and cardiac silhouette are within normal limits as visualized. The bones show no significant interval abnormality. The remainder of this exam shows no significant interval change compared to the prior study of comparison. IMPRESSION: 1. Stable chest x-ray exam with persistent consolidation involving the left upper lung field with patchy airspace opacification involving the left midlung field and left lung base. 2. Emphysematous lung disease of the right lung with right lung base atelectasis or scarring. Dictated by: Dictated on workstation # [id number]
[2017-12-30] MEDS: RT-ADVAIR HFA 115/21 MCG PER PUFF IH SCH (10:47)
[2017-12-30] MEDS: UMECLIDINIUM BROMIDE (INCRUSE ELLIPTA) 7'S IH SCH (10:52)
[2017-12-30] MEDS: HALOPERIDOL 5 MG/ML (HALDOL) AMP IV PRN (17:37)
== END 2017-12-30 18:05 | disposition hospice, home (50) | DRG 871 ==
LOC: ICU 19:08 → 4TH 12-26 11:40 → ICU 12-27 12:00
PROVIDERS: ADMIT Internal Medicine; ATTEND Internal Medicine
DX: A41.9 Sepsis, unspecified organism (principal); J18.9 Pneumonia, unspecified organism; J96.00 Acute respiratory failure, unspecified whether with hypoxia or hypercapnia; J44.0 Chronic obstructive pulmonary disease with (acute) lower respiratory infection; C34.12 Malignant neoplasm of upper lobe, left bronchus or lung; C64.9 Malignant neoplasm of unspecified kidney, except renal pelvis; C77.3 Secondary and unspecified malignant neoplasm of axilla and upper limb lymph nodes; R65.20 Severe sepsis without septic shock; E87.2 Acidosis; Z66 Do not resuscitate; J98.09 Other diseases of bronchus, not elsewhere classified; I10 Essential (primary) hypertension; I69.398 Other sequelae of cerebral infarction; H54.60 Unqualified visual loss, one eye, unspecified; K21.9 Gastro-esophageal reflux disease without esophagitis; M19.91 Primary osteoarthritis, unspecified site; E86.0 Dehydration; D64.9 Anemia, unspecified; R53.81 Other malaise; F41.9 Anxiety disorder, unspecified; F32.9 Major depressive disorder, single episode, unspecified; E78.00 Pure hypercholesterolemia, unspecified; Z87.891 Personal history of nicotine dependence; Z92.3 Personal history of irradiation
CPT/HCPCS: 36415; 36600; 71045; 71275; 76937; 80048; 80053; 80202; 82805; 83605; 83735; 83880; 84100; 85007; 85025; 85027; 87040; 87081; 94640; 94660